=== PATIENT | female | born 1955 | race Caucasian/White ===

== ENCOUNTER 2017-08-26 01:16 | Outpatient (CLI) | payer BC | END 2017-08-26 01:17 | disposition home or self-care (01) | LOC: BICRAD 01:16 | PROVIDERS: ATTEND Internal Medicine Rheumatology | DX: M54.2 Cervicalgia (principal); M25.572 Pain in left ankle and joints of left foot; M25.571 Pain in right ankle and joints of right foot; M47.892 Other spondylosis, cervical region; M19.071 Primary osteoarthritis, right ankle and foot; M19.072 Primary osteoarthritis, left ankle and foot; M77.31 Calcaneal spur, right foot; M77.32 Calcaneal spur, left foot | CPT/HCPCS: 72050 ==

== ENCOUNTER 2017-08-26 07:58 | Outpatient (CLI) | payer BC ==
--- NOTE | 2017-08-26 11:29 | MRI ---
MRI OF THE RIGHT SHOULDER: DATE: 08/26/17. PROVIDED CLINICAL HISTORY: Right shoulder pain. FINDINGS: There is a small full-thickness partial width tear involving the anteriormost portion of the supraspi natus tendon distally at the footplate. There is some interstitial delamination of this tear to invo lve the slightly more posterior fibers of the supraspinatus tendon. The components of the rotator cu ff appear otherwise intact. The longhead biceps tendon appears intact and normally located. The glenoid labrum and glenohumeral articular cartilage are suboptimally evaluated without joint dist ention. The amount of fluid within the glenohumeral joint appears physiologic. There is grade I physiologic subacromial subdeltoid bursal fluid. Rotator cuff muscular volume appears preserved. Acromioclavicular joint osteoarthrosis is noted with associated mass effect upon the subjacent supras pinatus. IMPRESSION: 1. Small full-thickness partial width tear involving the anterior distal supraspinatus tendon at the footplate with interstitial delaminating component. 2. Acromioclavicular joint osteoarthrosis. POS: [facility]
== END 2017-08-26 07:59 | disposition home or self-care (01) ==
LOC: SCSMRI 07:58
PROVIDERS: ATTEND Family Medicine
DX: M75.41 Impingement syndrome of right shoulder (principal); M75.101 Unspecified rotator cuff tear or rupture of right shoulder, not specified as traumatic; M19.011 Primary osteoarthritis, right shoulder; M54.2 Cervicalgia
CPT/HCPCS: 72050

== ENCOUNTER 2018-01-05 14:48 | Observation (INO) | payer BC ==
[2018-01-05 15:18] LABS: #Eosinphils 0.2 thou/uL (0.0-0.7); #Lymphocytes 1.9 thou/uL (1.20-3.40); #Monocytes 0.6 thou/uL (0.11-0.59); #Neutrophils 3.4 thou/uL (1.40-6.50); %Basophils 0.7 % (0.0-1.0); %Eosinophils 2.6 % (0.0-10.0); %Monocytes 9.6 % (0.0-10.0); %Neutrophils 56.1 % (42.0-75.0); Mean Corpuscular HGB CONC 34.7 g/dL (32.0-36.0); Mean Corpuscular Hemoglobin 29.6 pg (27.0-31.0); Mean Corpuscular Volume 85.2 fl (81.0-99.0); Mean Platelet Volume 9.2 fL (7.4-10.4); Platelet Count 139 thou/uL (130-400); RBC Distribution Width 12.1 % (11.5-14.5); Red Blood Cell (RBC) Count 4.72 mill/uL (4.20-5.40); White Blood Cell (WBC) Count 6.1 thou/uL (4.8-10.8)
[2018-01-05 15:35] LABS: ALT (SGPT) 18 U/L (8-55); AST (SGOT) 20 U/L (5-34); Albumin 4.7 g/dL (3.4-4.8); Alkaline Phosphatase 95 U/L (40-150); Anion Gap 16 mmol/L (10-20); BUN (Urea Nitrogen) 11 mg/dL (9.8-20.1); Bilirubin, Total 0.6 mg/dL (0.2-1.2); CK (CPK) 95 U/L (29-168); Calc. Creatinine Clearance 0 mL/min (70-130); Calcium 9.6 mg/dL (7.8-10.44); Carbon Dioxide 25 mmol/L (23-31); Chloride 103 mmol/L (98-107); Estimated GFR-MDRD 81; Globulin 2.9 g/dL (2.4-3.5); Glucose 98 mg/dL (80-115); Potassium 3.6 mmol/L (3.5-5.1); Protein, Total 7.6 g/dL (6.0-8.3); Sodium 140 mmol/L (136-145)
[2018-01-05 15:37] LABS: CKMB 0.9 ng/mL (0-6.6); Troponin I Less than 0.010 ng/mL (< 0.028)
--- NOTE | 2018-01-05 15:46 | RAD ---
PORTABLE AP CHEST X-RAY: 01/05/18 HISTORY: Bradycardia. Weakness and fatigue. COMPARISON: 12/18/12. FINDINGS: The cardiac silhouette and pulmonary vasculature are within normal limits. The lungs are clear. There has been no interval change compared to the prior exam. IMPRESSION: No acute cardiopulmonary process. POS: [facility]
[2018-01-05] MEDS ORDERED: Ondansetron ODT 4 MG TAB SL PRN (17:53)
[2018-01-05] MEDS ORDERED: Acetaminophen 325 MG TAB PO PRN ×2 (17:53→18:45)
[2018-01-05 18:03] VITALS: BMI 27.0
[2018-01-05] MEDS ORDERED: hydrALAZINE 20 MG/ML VIAL SLOW IVP PRN (18:45)
[2018-01-05] MEDS ORDERED: cloNIDine 0.1 MG TAB PO PRN (18:45)
[2018-01-05] MEDS ORDERED: Nitroglycerin 0.4 MG TAB (25 Tab Bottle) SL PRN (18:45)
[2018-01-05] MEDS ORDERED: Diabetic Tussin 200 MG/10 ML UDCUP PO PRN (18:45)
[2018-01-05] MEDS ORDERED: Mag-Al 1200 mg/1200 mg/30 ML UDCUP PO PRN (18:45)
[2018-01-05] MEDS ORDERED: Benzonatate 100 MG CAP PO PRN (18:45)
[2018-01-05] MEDS ORDERED: Senokot 8.6 MG TAB PO PRN (18:45)
[2018-01-05] MEDS ORDERED: Loratadine 10 MG TAB PO PRN (18:45)
[2018-01-05] MEDS ORDERED: Ondansetron HCl/PF 4 MG/2 ML Vial IVP PRN (18:45)
[2018-01-05] MEDS ORDERED: Calcium Carbonate 500 MG ChewTAB PO PRN (18:45)
[2018-01-05] MEDS ORDERED: Bisacodyl 5 MG TAB PO PRN (18:45)
[2018-01-05] MEDS ORDERED: sulfaSALAzine 500 MG TAB PO SCH (19:15)
--- NOTE | 2018-01-05 19:16 | HP ---
DATE OF ADMISSION: 01/05/2018 PRIMARY CARE PHYSICIAN: Dr. Otis Bell. CHIEF COMPLAINT: Low heart rate and tiredness. HISTORY OF PRESENT ILLNESS: Ms. Carlos is a very pleasant 62-year-old female with past medical his tory of hypertension and dyslipidemia, who presented to the [facility] with above -mentioned complaint. History is mainly obtained by the patient herself and electronic medical recor ds have been reviewed. The patient had a nuclear medicine stress test in 2012 for chest pain, which was unremarkable. Ms. Carlos reports that she has noticed in the past at least 2 times that she had palpitations and was found to have some extra beats. This happened actually quite a few years ago. Also, she noticed that she normally has slow heart rate in the 40s and 50s, which does not bother her. She exercises to get it faster. Lately for the last 2 weeks, she noted that she has been having increased fatigue and weakness and these times when she checks her heart rate and blood pressure, her blood pressure i s normal or slight bit higher, but her heart rate has dropped down in the 30s. This has been happeni ng quite frequently and most of the time she is either running in air and walking in the mall. She a lso reports that recently she was started on sulfasalazine by her artificial limb fitter, Dr. Cespedes for rheum atoid arthritis and 3 weeks ago, the dose was doubled. She correlates her symptoms with increase in the dose of the sulfasalazine. She otherwise denies any recent illnesses. She denies any chest pain, shortness of breath, dizziness , nausea, vomiting, palpitation, orthopnea, PND or lower extremity swelling. She denies any fever or chills. She denies any abdominal pain, hematochezia, or melena, etc. Upon presentation to the ER, her heart rate was in the 73 range. EKG showed sinus bradycardia and he r labs were within normal limit. She is now being admitted under observation status for further eval uation of symptomatic bradycardia that seems to be paroxysmal. PAST MEDICAL HISTORY: 1. Hypertension. 2. Dyslipidemia. PAST SURGICAL HISTORY: Reviewed with the patient and none. SOCIAL HISTORY: No history of drug, tobacco or alcohol abuse. 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 FAMILY HISTORY: Significant family history for coronary artery disease in multiple family members. Father at the age of 53 because of a heart attack and father's father also in his 50 s of a heart attack. Her mother lived to be in the 90s, but had a pacemaker. Both of her grandparen ts on mother's side had cardiac disease. One of her sisters of colon cancer in her 50s. One of her brothers has been diagnosed with an arrhythmia and is scheduled for ablation. The sister who di ed of colon cancer, also had some sort of arrhythmias. ALLERGIES: NITROFURANTOIN. CURRENT MEDICATIONS: Amlodipine 10 mg daily, atorvastatin 40 mg daily, sulfasalazine 500 mg 3 times a day, vitamin D3 1000 units daily. REVIEW OF SYSTEMS: The following complete review of systems was negative, unless otherwise mentioned in the HPI or below: Constitutional: Weight loss or gain, ability to conduct usual activities. Skin: Rash, itching. Eyes: Double vision, pain. ENT/Mouth: Nose bleeding, neck stiffness, pain, tenderness. Cardiovascular: Palpitations, dyspnea on exertion, orthopnea. Respiratory: Shortness of breath, wheezing, cough, hemoptysis, fever or night sweats. Gastrointestinal: Poor appetite, abdominal pain, heartburn, nausea, vomiting, constipation, or diarrhea. Genitourinary: Urgency, frequency, dysuria, nocturia. Musculoskeletal: Pain, swelling. Neurologic/Psychiatric: Anxiety, depression. Allergy/Immunologic: Skin rash, bleeding tendency. LABORATORY DATA: CBC unremarkable. Serum chemistries unremarkable. BNP 48. CK-MB 0.9 with troponi n of less than 0.010. Chest x-ray by my review has no evidence to suggest any pleural effusion or ed nellie. No cardiomegaly. A 12-lead EKG shows sinus arrhythmia at 65 beats per minute. Her first EKG s howed some PVCs in the pattern of bigeminy and possible premature atrial complexes with aberrant cond uction and LVH. PHYSICAL EXAMINATION: VITAL SIGNS: Most recent vital signs, temperature 97.7, heart rate 55-71, respirations 16, saturatin g 96% on room air, blood pressure 168/75. GENERAL: No acute distress, awake, alert, oriented x3, very pleasant. HEENT: Mucous membrane is moist and pink. No oropharyngeal exudate or erythema. Head is normocepha lic, atraumatic. Pupils equal, reactive to light and accommodation. Extraocular movement intact. NECK: Supple without any lymphadenopathy, JVD or bruit. CHEST: Clear to auscultation without any wheezing, rales or rhonchi. Rate and rhythm is regular wit hout any murmur, rubs or gallops. ABDOMEN: Soft, nontender, nondistended, positive bowel sounds. EXTREMITIES: Free of any cyanosis, clubbing, or edema. NEUROLOGIC: Nonfocal. SKIN: Free of any rashes or bruises. Feels warm and dry to touch. PSYCHIATRIC: Normal affect. NEUROLOGIC: Nonfocal. IMPRESSION AND PLAN: 1. Symptomatic bradycardia. The patient has noticed more symptoms and more profound bradycardia in the last 3 weeks or so. At this time, we will hold her amlodipine, though this is least likely to ca use bradycardia. The patient most likely has sick sinus syndrome and will require cardiac monitoring in the outpatient setting as well. We will request consultation from Cardiology and obtain a transt horacic echocardiogram meanwhile. She will be admitted to telemetry unit. She will benefit from a H olter and event monitor or implantable monitor. We will defer this to the Cardiology team at this [facility]. 2. Dyslipidemia. Continue atorvastatin. 3. History of hypertension. Hold amlodipine until Cardiology has seen the patient. We will add p.r .n. medications for now. Monitor closely. 4. Family history of colon cancer. The patient has been getting screening colonoscopies and the las t one was 3 years ago, which was normal. 5. Code status: FULL CODE. 6. Deep venous thrombosis and gastrointestinal prophylaxis. DISPOSITION: Ms. Carlos currently being admitted.
[2018-01-05 19:28] LABS: Troponin I Less than 0.010 ng/mL (< 0.028)
[2018-01-05 21:47] LABS: Troponin I Less than 0.010 ng/mL (< 0.028)
[2018-01-06 05:13] LABS: #Eosinphils 0.2 thou/uL (0.0-0.7); #Lymphocytes 1.9 thou/uL (1.20-3.40); #Monocytes 0.5 thou/uL (0.11-0.59); #Neutrophils 2.7 thou/uL (1.40-6.50); %Basophils 0.2 % (0.0-1.0); %Eosinophils 3.1 % (0.0-10.0); %Lymphocytes 36.1 % (21.0-51.0); %Neutrophils 50.6 % (42.0-75.0); Mean Corpuscular HGB CONC 32.9 g/dL (32.0-36.0); Mean Corpuscular Hemoglobin 29.1 pg (27.0-31.0); Mean Corpuscular Volume 88.3 fl (81.0-99.0); Mean Platelet Volume 8.3 fL (7.4-10.4); Platelet Count 159 thou/uL (130-400); RBC Distribution Width 12.4 % (11.5-14.5); Red Blood Cell (RBC) Count 4.47 mill/uL (4.20-5.40); White Blood Cell (WBC) Count 5.3 thou/uL (4.8-10.8)
[2018-01-06 05:25] LABS: Anion Gap 11 mmol/L (10-20); BUN (Urea Nitrogen) 11 mg/dL (9.8-20.1); Calc. Creatinine Clearance 123 mL/min (70-130); Calcium 8.9 mg/dL (7.8-10.44); Carbon Dioxide 27 mmol/L (23-31); Chloride 106 mmol/L (98-107); Estimated GFR-MDRD Greater than 90; Glucose 89 mg/dL (80-115); Potassium 3.5 mmol/L (3.5-5.1); Sodium 140 mmol/L (136-145)
[2018-01-06] MEDS ORDERED: sulfaSALAzine 500 MG TAB PO SCH (08:00)
[2018-01-06] MEDS ORDERED: Enoxaparin Sodium 40 MG/0.4 ML SYRINGE SC SCH (09:00)
[2018-01-06] MEDS ORDERED: Fish Oil 1,000 MG CAP PO SCH (09:00)
[2018-01-06] MEDS ORDERED: Amlodipine 5 MG TAB PO SCH (09:00)
[2018-01-06] MEDS ORDERED: Atorvastatin Calcium 10 MG TAB PO SCH (09:00)
--- NOTE | 2018-01-06 14:41 | PDOC.PN ---
- Subjective Encounter Start Date: 01/06/18 Encounter Start Time: 14:40 Subjective: feels good.walked in hallways w -: no CP/SOB/dizziness - Objective MAR Reviewed: Yes Vital Signs & Weight: Vital Signs (12 hours) Temp Pulse Resp BP Pulse Ox 01/06/18 11:08 98.1 F 59 L 16 159/71 H 97 01/06/18 09:02 61 01/06/18 08:11 97.8 F 61 16 01/06/18 08:02 97.8 F 61 16 182/75 H 96 01/06/18 04:29 98.3 F 68 14 125/61 97 I&O: 01/05/18 01/06/18 01/07/18 06:59 06:59 06:59 Intake Total 400 Balance 400 Result Diagrams: 01/06/18 04:38 01/06/18 04:38 Phys Exam - Physical Examination Constitutional: NAD HEENT: PERRLA, moist MMs, sclera anicteric, oral pharynx no lesions Neck: no nodes, no JVD, supple, full ROM Respiratory: no wheezing, no rales, no rhonchi, clear to auscultation bilateral Cardiovascular: RRR, no significant murmur, no rub, gallop Gastrointestinal: soft, non-tender, no distention, positive bowel sounds Musculoskeletal: no edema, pulses present Neurological: non-focal, normal sensation, moves all 4 limbs Psychiatric: normal affect, A&O x 3 Skin: no rash Dx/Plan (1) Sinus bradycardia Code(s): R00.1 - BRADYCARDIA, UNSPECIFIED Status: Acute (2) HTN (hypertension) Code(s): I10 - ESSENTIAL (PRIMARY) HYPERTENSION Status: Acute - Plan DVT proph w/SCDs cont to monitor. cardiology recs requested.NPO for now -: BP on higher side. monitor.restarted on home amlodipine.may need increased -: cont prn meds. * . Review of Systems - Review of Systems Constitutional: negative: fever, chills, sweats, weakness, malaise, other ENT: negative: Ear Pain, Ear Discharge, Nose Pain, Nose Discharge, Nose Congestion, Mouth Pain, Mouth Swelling, Throat Pain, Throat Swelling, Other Respiratory: negative: Cough, Dry, Shortness of Breath, Hemoptysis, SOB with Excertion, Pleuritic Pain, Sputum, Wheezing Cardiovascular: negative: chest pain, palpitations, orthopnea, paroxysmal nocturnal dyspnea, edema, light headedness, other Gastrointestinal: negative: Nausea, Vomiting, Abdominal Pain, Diarrhea, Constipation, Melena, Hematochezia, Other Genitourinary: negative: Dysuria, Frequency, Incontinence, Hematuria, Retention , Other Musculoskeletal: negative: Neck Pain, Shoulder Pain, Arm Pain, Back Pain, Hand Pain, Leg Pain, Foot Pain, Other Skin: negative: Rash, Lesions, Tay, Bruising, Other Neurological: negative: Weakness, Numbness, Incoordination, Change in Speech, Confusion, Seizures, Other - Medications/Allergies Allergies/Adverse Reactions: Allergies Allergy/AdvReac Type Severity Reaction Status Date / Time nitrofurantoin Allergy Verified 01/05/18 18:05 macrocrystalline [From Macrodantin] Medications: Current Medications Acetaminophen (Tylenol) 650 mg PO Q4H PRN PRN Reason: Headache/Fever or Pain Al Hydroxide/Mg Hydroxide (Maalox) 30 ml PO Q6H PRN PRN Reason: Heartburn or Indigestion Amlodipine Besylate (Norvasc) 5 mg PO DAILY [facility] Last Admin: 01/06/18 09:02 Dose: 5 mg Atorvastatin Calcium (Lipitor) 10 mg PO DAILY [facility] Last Admin: 01/06/18 09:02 Dose: 10 mg Benzonatate (Tessalon) 100 mg PO Q4H PRN PRN Reason: Cough Bisacodyl (Dulcolax) 10 mg PO DAILYPRN PRN PRN Reason: Constipation Calcium Carbonate (Tums) 1,000 mg PO Q4H PRN PRN Reason: Heartburn or Indigestion Cholecalciferol (Vitamin D3) 2,000 units PO DAILY [facility] Last Admin: 01/06/18 09:01 Dose: 2,000 units Clonidine (Catapres) 0.1 mg PO Q4H PRN PRN Reason: Systolic BP > 160 Enoxaparin Sodium (Lovenox) 40 mg SC 0900 [facility] Last Admin: 01/06/18 12:54 Dose: Not Given Fish Oil (Fish Oil) 1,000 mg PO DAILY [facility] Last Admin: 01/06/18 12:55 Dose: Not Given Guaifenesin (Robitussin Sf) 200 mg PO Q4H PRN PRN Reason: Cough Hydralazine HCl (Apresoline) 10 mg SLOW IVP Q4H PRN PRN Reason: Systolic BP > 170 Loratadine (Claritin) 10 mg PO DAILYPRN PRN PRN Reason: Sinus Symptoms Nitroglycerin (Nitrostat) 0.4 mg SL Q5MIN PRN PRN Reason: Chest Pain Ondansetron HCl (Zofran) 4 mg IVP Q6H PRN PRN Reason: Nausea/Vomiting Senna (Senokot) 2 tab PO HSPRN PRN PRN Reason: Constipation Sulfasalazine (Azulfidine) 1,000 mg PO BID-[facility] Last Admin: 01/06/18 12:54 Dose: Not Given
[2018-01-06 15:33] VITALS: BP 140/75; TEMP 97.8
--- NOTE | 2018-01-06 18:09 | CON ---
DATE OF CONSULTATION: 01/06/2018 REASON FOR CONSULTATION: Bradycardia and tiredness. HISTORY OF PRESENT ILLNESS: Mrs. Carlos is a very pleasant 62-year-old white female who comes to [facility] for just feeling tired. She has noticed that for the last 3 weeks, she has had episodes where she was at the store and suddenly felt really tired and fatigued. She went home on this last e pisode and she took her blood pressure which was about 160s/80s but the machine saw that her heart ra te was in the 30s, so she was advised to come into the hospital for this. Recently, she had sulfasal azine restarted by her utilities estimator and drafter and she has noted these episodes since then. On arrival to the ER, her EKG showed sinus rhythm with PVCs in a bigeminy pattern. She was feeling well at that time. PAST MEDICAL HISTORY: 1. Hypertension. 2. Hyperlipidemia. 3. Rheumatoid arthritis. PAST SURGICAL HISTORY: 1. Appendectomy. 2. Hysterectomy. 3. Left shoulder surgery. 4. Anterior and posterior repair of an enterocele and a MiniArc transvaginal capping secondary to gr hilton 2 rectocele and grade 2-3 cystocele. OUTPATIENT MEDICATIONS: 1. Atorvastatin 40 mg a day. 2. Amlodipine 10 mg a day. 3. Krill oil. 4. Sulfasalazine 1000 mg b.i.d. 5. Vitamin D3 of 2000 units daily. ALLERGIES: MACRODANTIN. FAMILY HISTORY: Positive for coronary artery disease in multiple family members. Father at 53 of an TN. Grandfather and father's side in his 50s of an TN. Mother lived to be 90, but had a pacemaker. Has a brother with an ablation coming up for an arrhythmia. SOCIAL HISTORY: No alcohol, tobacco or drugs. 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 REVIEW OF SYSTEMS: A 12 point review of systems was done and is all negative unless stated in the hi story of present illness. PHYSICAL EXAMINATION: VITAL SIGNS: Temperature 97.8, pulse 76, respiratory rate 12, satting 97% on room air, blood pressur e 140/75. GENERAL: Awake, alert, oriented x3, in no distress. HEENT: Normocephalic, atraumatic. NECK: Supple. LUNGS: Clear. CARDIOVASCULAR: S1, S2, no S3, S4, no murmurs or rubs. No gallops. ABDOMEN: Soft, positive bowel sounds. EXTREMITIES: No edema. SKIN: Warm and dry. LABORATORY WORK: Reviewed. CBC is unremarkable. Chemistries are unremarkable. Troponin is undetec table x3. BNP was 48. Echocardiogram was reviewed. ASSESSMENT AND PLAN: 1. Bradycardia: My suspicion is the machine was reading her bigeminy and her heart rate was actuall y in the 60s. This is unclear to me at this time. Her blood pressure was not the issue either. We would recommend doing a 30-day event recorder or event monitor to assess for any arrhythmias. Hopefu lly, we will catch one of these episodes in the next week or so and be able to elucidate if this was related to slow heart rates versus this could be also related to too many PVCs or even nonsustained V T or sustained VT. 2. She has moderate mitral regurgitation and tricuspid regurgitation. These would have to be review ed on a yearly basis with repeat echocardiogram. 3. We will get a Lexiscan stress test as an outpatient to evaluate for ischemia being the cause of h er fatigue and her multiple PVCs. Thank you for letting us to participate in the care of your patient. We will plan on doing a 30-day event recorder, stress is in the next 30 days and follow up in 1 month. We will sign off. Please ca ll with any questions. Patient may be discharged once event recorder has been set up.
--- NOTE | 2018-01-07 12:19 | DIS ---
DATE OF ADMISSION: 01/05/2018 DATE OF DISCHARGE: 01/06/2018 CONDITION AT THE TIME OF DISCHARGE: Stable and improved. DISPOSITION: Home. PRIMARY CARE PHYSICIAN: Otis Bell MD CONSULTATION: Include Cardiology, Dr. Kelley. PROCEDURES: Echocardiogram, which is unremarkable. EF is 50%-55% and grade 1/3 diastolic dysfunctio n with moderate left atrial dilatation and moderate tricuspid regurgitation. DISCHARGE MEDICATIONS: Remain the same as the home medication, no changes were made including atorva statin 40 mg daily, amlodipine 10 mg daily, sulfasalazine 100 mg p.o. b.i.d., cholecalciferol 2000 un its daily, and fish oil. HISTORY OF PRESENTING ILLNESS: Ms. Carlos is a 62-year-old female with past medical history of hyp ertension who presented to the emergency room after she noticed some weakness and tiredness, and noti hipolito that her heart rate was in the 30s at home. She gave history of multiple episodes of fast heart rate interspersed with slow heart rate over the course of the last 2 years. She was admitted for fur ther evaluation and Cardiology was consulted. She was otherwise hemodynamically stable. Please see admission history and physical for further details. HOSPITAL COURSE: Cardiology, Dr. Kelley saw the patient and recommended event monitor for 1 month fo llowed by stress test in 1 month in the clinic. Echocardiogram was done which did not show any overt changes. She did have grade I/III diastolic dysfunction, but was asymptomatic. No medication zuleta es were made and after she was cleared by Cardiology for discharge, she was sent home for outpatient followup with Cardiology as well as primary care physician. She was seen and examined prior to discharge. Please see hospitalist's progress note from the day of discharge for further detail including [id number] interaction.
== END 2018-01-06 17:03 | disposition home or self-care (01) ==
LOC: SCSER 14:48 → 2SW 16:25
PROVIDERS: ADMIT Internal Medicine; ATTEND Internal Medicine
DX: R00.1 Bradycardia, unspecified (principal); I08.1 Rheumatic disorders of both mitral and tricuspid valves; I10 Essential (primary) hypertension; E78.5 Hyperlipidemia, unspecified; M06.9 Rheumatoid arthritis, unspecified; Z88.8 Allergy status to other drugs, medicaments and biological substances; Z79.899 Other long term (current) drug therapy; Z98.890 Other specified postprocedural states; Z80.0 Family history of malignant neoplasm of digestive organs; Z82.49 Family history of ischemic heart disease and other diseases of the circulatory system
CPT/HCPCS: 36415; 71045; 80048; 80053; 82553; 83880; 84484; 85025; 93005; 93306; 94760; G0378; J1650

== ENCOUNTER 2018-01-26 15:17 | Outpatient (CLI) | payer BC | END 2018-01-26 15:18 | disposition home or self-care (01) | LOC: BICMAMMO 15:17 | PROVIDERS: ATTEND Family Medicine | DX: Z12.31 Encounter for screening mammogram for malignant neoplasm of breast (principal); Z80.3 Family history of malignant neoplasm of breast | CPT/HCPCS: 77063; 77067 ==

== ENCOUNTER 2018-06-06 10:20 | Outpatient (CLI) | payer BC ==
--- NOTE | 2018-06-06 14:58 | MRI ---
MRI OF THE LEFT KNEE WITHOUT CONTRAST: INDICATION: Left knee meniscal tear. FINDINGS: There is a horizontally oriented tear involving the body, posterior junction, and posterior horn of t he medial meniscus. There is a small central free edge radial tear involving the body of the lateral meniscus. There is moderate chondrosis involving the medial femoral condyle with a near full-thickness defect i nvolving the lateral aspect of the medial femoral condyle best seen on image 21 of series 6 measuring 1.3 cm. There are small marginal osteophytes affecting all major compartments of the left knee. There is mod erate diffuse chondrosis involving the patellofemoral compartment. There is a mild-sized joint effus ion. There is a small popliteal cyst. The MCL, LCLC, and extensor mechanism appear intact. The ACL and PCL are intact. IMPRESSION: 1. Mild osteoarthrosis of the left knee predominantly affecting the medial femoral tibial and patell ofemoral compartments. 2. Medial and lateral meniscal tears. POS: [facility]
== END 2018-06-06 10:21 | disposition home or self-care (01) ==
LOC: TBSIIMAG 10:20
PROVIDERS: ATTEND Orthopaedic Surgery
DX: S83.242A Other tear of medial meniscus, current injury, left knee, initial encounter (principal); M17.12 Unilateral primary osteoarthritis, left knee; S83.282A Other tear of lateral meniscus, current injury, left knee, initial encounter

== ENCOUNTER 2018-07-04 15:40 | Outpatient (CLI) | payer BC ==
--- NOTE | 2018-07-04 18:17 | MRI ---
MRI RIGHT KNEE WITHOUT CONTRAST: Date: 07/04/18 HISTORY: Pain, M25.561. COMPARISON: None. FINDINGS: Medial Meniscus: There is scar and granulation tissue posterior root attachment medial meniscus with likely a partiall y healed high grade radial tear. There is undersurface partial tear of the body of the medial meniscu s with inherent degenerative signal. Lateral Meniscus: There is free edge fraying of the lateral meniscal body. No displaced tear. The ACL and PCL are intact. The MCL and LCL are intact. Extensor Mechanism: Quadriceps tendon, patella, and patellar tendon are all intact. Cartilage: Patellofemoral compartment: Intact. Medial compartment: There is some high grade cartilage fissuring of the anterior weightbearing surfa ce of the medial femoral condyle. There is submeniscal tibial edema. Lateral compartment: Intact. Benign appearing chondroid lesion distal femoral metaphysis. Soft Tissues: There is a large leaking popliteal cyst. Muscles: Muscle signal and bulk are normal. IMPRESSION: 1. Abnormal stress edema of the anterior medial femoral condyle and medial tibial plateau with high grade cartilage fissuring of the medial femoral condyle. The tibial plateau edema is submeniscal. 2. Scar and granulation tissue bridging a high grade old radial tear of the posterior root attachmen t of the medial meniscus. 3. Free edge fraying without displaced tear lateral meniscal body. 4. Leaking popliteal cyst. POS: [facility]
== END 2018-07-04 15:41 | disposition home or self-care (01) ==
LOC: TBSIIMAG 15:40
PROVIDERS: ATTEND Orthopaedic Surgery
DX: M25.561 Pain in right knee (principal); R60.0 Localized edema; M71.21 Synovial cyst of popliteal space [Baker], right knee; L92.9 Granulomatous disorder of the skin and subcutaneous tissue, unspecified

== ENCOUNTER 2018-09-21 13:59 | Outpatient (CLI) | payer BC ==
[2018-09-21 17:12] LABS: #Eosinphils 0.1 thou/uL (0.0-0.7); #Monocytes 0.6 thou/uL (0.11-0.59); #Neutrophils 4.2 thou/uL (1.40-6.50); %Basophils 0.4 % (0.0-1.0); %Monocytes 8.6 % (0.0-10.0); Hemoglobin 13.5 g/dL (12.0-16.0); Mean Corpuscular HGB CONC 33.3 g/dL (32.0-36.0); Mean Corpuscular Hemoglobin 29.6 pg (27.0-31.0); Platelet Count 186 thou/uL (130-400); RBC Distribution Width 11.9 % (11.5-14.5); Red Blood Cell (RBC) Count 4.56 mill/uL (4.20-5.40)
[2018-09-21 17:29] LABS: Anion Gap 13 mmol/L (10-20); BUN (Urea Nitrogen) 20 mg/dL (9.8-20.1); Calc. Creatinine Clearance 0 mL/min (70-130); Calcium 9.3 mg/dL (7.8-10.44); Carbon Dioxide 25 mmol/L (23-31); Chloride 105 mmol/L (98-107); Estimated GFR-MDRD 79; Glucose 124 mg/dL (80-115); Potassium 3.6 mmol/L (3.5-5.1); Sodium 139 mmol/L (136-145)
--- NOTE | 2018-09-22 17:00 | EKG ---
Test Reason : Blood Pressure : / mmHG Vent. Rate : 069 BPM Atrial Rate : 069 BPM P-R Int : 152 ms QRS Dur : 096 ms QT Int : 424 ms P-R-T Axes : 076 083 075 degrees QTc Int : 454 ms Normal sinus rhythm Possible Left atrial enlargement Left ventricular hypertrophy Abnormal ECG When compared with ECG of 05-JAN-2018 16:31, No significant change was found Confirmed by DR. Monica KELLER ([id number]) on 09/22/2018 4:59:30 PM Referred By: JASS Confirmed By:DR. Monica KELLER
== END 2018-09-21 14:00 | disposition home or self-care (01) ==
LOC: LABBT 13:59
PROVIDERS: ATTEND Orthopaedic Surgery
DX: Z01.818 Encounter for other preprocedural examination (principal); S83.242A Other tear of medial meniscus, current injury, left knee, initial encounter; S83.282A Other tear of lateral meniscus, current injury, left knee, initial encounter
CPT/HCPCS: 80048; 85025; 93005; 93010

== ENCOUNTER 2018-09-23 05:52 | Day surgery (SDC) | payer BC ==
[2018-09-21 15:50] VITALS: BMI 26.5
[2018-09-23] MEDS ORDERED: PROPOFOL 20 ML ONE (06:33)
[2018-09-23] MEDS ORDERED: Midazolam HCl 2 mg/2 ml Vial ONE (06:38)
[2018-09-23] MEDS ORDERED: Fentanyl 100 MCG/2 ML VIAL ONE (06:38)
[2018-09-23] MEDS ORDERED: Bupivacaine HCl 0.5%/Epinephrine 1:200,000/PF 30 ml Vial ONE ×2 (06:52→16:12)
[2018-09-23] MEDS ORDERED: CEFAZOLIN 2 GM/50 ML BAG ONE (06:52)
[2018-09-23] MEDS ORDERED: PROPOFOL 200 MG/20 ML VIAL ONE (10:40)
[2018-09-23] MEDS ORDERED: Lidocaine 1% PF 5 ML VIAL ONE (10:40)
[2018-09-23] MEDS ORDERED: Dexamethasone 20 MG/5 ML VIAL ONE (10:40)
[2018-09-23] MEDS ORDERED: Ondansetron PF 4 MG/2 ML Vial ONE (10:40)
--- NOTE | 2018-09-23 14:03 | OP ---
DATE OF PROCEDURE: 09/23/2018 PREOPERATIVE DIAGNOSIS: Medial and lateral meniscus tear, left knee. POSTOPERATIVE DIAGNOSIS: Medial and lateral meniscus tear, left knee. PROCEDURE: Arthroscopic partial medial and lateral meniscectomy. ANESTHESIA: General. ESTIMATED BLOOD LOSS: Minimal. SPECIMENS: None. DRAINS: None. COMPLICATIONS: None. DESCRIPTION OF PROCEDURE: The patient was taken to the operating room, where general anesthesia was induced. Left leg was placed in leg constantino and prepped and draped in usual sterile fashion. I placed the scope through a lateral portal and probe through a medial portal. Patellofemoral joint had some grade 2 chondromalacia. The medial femoral condyle had grade 3 chondromalacia. There is a complex tear involving most of the posterior horn of the medial meniscus and significant portion of the posterior horn of the lateral meniscus. I debrided the meniscus tissue with basket forceps on the medial side and smoothed with 4.0 full-radius resector and irrigated free cartilage fragments from the joint. I performed the same procedure on the lateral side. I then swept the gutters and searched the pouch to make sure there were no additional loose bodies. The knee was irrigated and drained. Sterile dressing was applied. Job ID: [id number]
[2018-09-23] MEDS ORDERED: Lidocaine 2% w/Epinephrine 1:200K 20 ML VIAL ONE (16:12)
== END 2018-09-23 10:14 | disposition home or self-care (01) ==
LOC: SDC 05:52
PROVIDERS: ATTEND Orthopaedic Surgery
PROC: 0SBD4ZZ Excision of Left Knee Joint, Percutaneous Endoscopic Approach (ICD-10-PCS; principal; 2018-09-23)
DX: S83.272A Complex tear of lateral meniscus, current injury, left knee, initial encounter (principal); S83.232A Complex tear of medial meniscus, current injury, left knee, initial encounter; M94.262 Chondromalacia, left knee; M06.061 Rheumatoid arthritis without rheumatoid factor, right knee; I10 Essential (primary) hypertension; E78.5 Hyperlipidemia, unspecified; E78.00 Pure hypercholesterolemia, unspecified; G40.909 Epilepsy, unspecified, not intractable, without status epilepticus; K74.3 Primary biliary cirrhosis; L94.0 Localized scleroderma [morphea]; Z79.2 Long term (current) use of antibiotics; Z79.899 Other long term (current) drug therapy; Z88.1 Allergy status to other antibiotic agents; Y93.53 Activity, golf
CPT/HCPCS: J0670; J1100; J2001; J2250; J2405; J2704; J3010

== ENCOUNTER 2019-01-12 07:57 | Outpatient (CLI) | payer BC ==
--- NOTE | 2019-01-12 08:15 | RAD ---
EXAM: Lumbar spine 4 views HISTORY: Low back pain COMPARISON: None FINDINGS: No evidence for acute fracture or dislocation involving the visualized spine. There are disc osteophytosis and facet arthrosis changes. 2.7 cm grade 1 spondylolisthesis of L4 and L5. Bony demineralization. No evidence for a bone lesion. IMPRESSION: Spondylosis. Grade 1 spondylolisthesis of L4 and L5.
== END 2019-01-12 07:58 | disposition home or self-care (01) ==
LOC: BICRAD 07:57
PROVIDERS: ATTEND Internal Medicine Rheumatology
DX: M54.5 Low back pain (principal); M47.816 Spondylosis without myelopathy or radiculopathy, lumbar region; M43.16 Spondylolisthesis, lumbar region
CPT/HCPCS: 72110

== ENCOUNTER 2019-06-20 07:40 | Outpatient (CLI) | payer BC ==
--- NOTE | 2019-06-20 09:29 | MMO ---
Bilateral MAMMO Bilat Screen [facility]. CLINICAL HISTORY: Patient is 63 years old and is seen for screening. The patient has no personal history of cancer. VIEWS: The views performed were: bilateral craniocaudal with tomosynthesis and bilateral mediolateral oblique with tomosynthesis. FILMS COMPARED: The present examination has been compared to a prior imaging study performed at [facility] on 01/26/2018. This study has been interpreted with the assistance of computer-aided detection. MAMMOGRAM FINDINGS: The breasts are heterogeneously dense, which could obscure a lesion on mammography. Benign calcifications are noted bilaterally. There are no suspicious masses, suspicious calcifications, or new areas of architectural distortion. IMPRESSION: THERE IS NO MAMMOGRAPHIC EVIDENCE OF MALIGNANCY. A ROUTINE FOLLOW-UP MAMMOGRAM IN 1 YEAR IS RECOMMENDED. THE RESULTS OF THIS EXAM WERE SENT TO THE PATIENT. ACR BI-RADS Category 2 - Benign finding MAMMOGRAPHY NOTE: 1. A negative mammogram report should not delay a biopsy if a dominant of clinically suspicious mass is present. 2. Approximately 10% to 15% of breast cancers are not detected by mammography. 3. Adenosis and dense breasts may obscure an underlying neoplasm. Reported by: WILLOW FLANNERY MD Electonically Signed: [id number]
== END 2019-06-20 07:41 | disposition home or self-care (01) ==
LOC: BICMAMMO 07:40
PROVIDERS: ATTEND Family Medicine
DX: Z12.31 Encounter for screening mammogram for malignant neoplasm of breast (principal)
CPT/HCPCS: 77063; 77067

== ENCOUNTER 2019-09-24 17:50 | Inpatient (IN) | payer BC ==
[2019-09-24 18:25] LABS: Hemoglobin 14.1 g/dL (12.0-16.0); Mean Corpuscular HGB CONC 33.7 g/dL (32.0-36.0); Mean Corpuscular Hemoglobin 29.3 pg (27.0-31.0); Mean Platelet Volume 7.3 fL (7.4-10.4); Platelet Count 383 thou/uL (130-400); RBC Distribution Width 12.5 % (11.5-14.5); Red Blood Cell (RBC) Count 4.82 mill/uL (4.20-5.40)
[2019-09-24] MEDS ORDERED: cefTRIAXone\\ROCEPHIN 2 GM VIAL ONE (18:26)
[2019-09-24] MEDS ORDERED: Acetaminophen 500 MG TAB ONE (18:26)
--- NOTE | 2019-09-24 18:30 | RAD ---
Chest AP view INDICATION: Dyspnea COMPARISON: January 05, 2018 FINDINGS: Lungs:There are patchy airspace opacities involving the right upper lobe and both lower lobes suspici ous for multifocal pneumonia. Cardiac silhouette:The heart size is accentuated by exam technique. Pulmonary vasculature:Normal Pleural spaces:No pleural effusion or pneumothorax is demonstrated. Upper abdomen:No abnormality seen. Osseous structures: No acute osseous abnormality. Additional findings:None. IMPRESSION: Findings suspicious for multifocal pneumonia. Radiographic follow-up to resolution is rec ommended.
[2019-09-24 18:35] LABS: INR-International Normal Ratio 1.2; PTT 29.4 SEC (22.9-36.1); Prothrombin Time 14.8 SEC (12.0-14.7)
[2019-09-24 18:42] LABS: ALT (SGPT) 58 U/L (8-55); AST (SGOT) 50 U/L (5-34); Albumin 3.5 g/dL (3.4-4.8); Alkaline Phosphatase 96 U/L (40-110); Anion Gap 16 mmol/L (10-20); BUN (Urea Nitrogen) 9 mg/dL (9.8-20.1); Bilirubin, Total 1.4 mg/dL (0.2-1.2); CK (CPK) 67 U/L (29-168); Calc. Creatinine Clearance 0 mL/min (70-130); Calcium 9.2 mg/dL (7.8-10.44); Carbon Dioxide 27 mmol/L (23-31); Chloride 94 mmol/L (98-107); Estimated GFR-MDRD 89; Globulin 3.8 g/dL (2.4-3.5); Glucose 134 mg/dL (80-115); Protein, Total 7.3 g/dL (6.0-8.3); Sodium 134 mmol/L (136-145)
[2019-09-24 18:49] LABS: Band 16 % (5-11); Lymphocytes 2 % (21-51); MDiff Complete? YES; Monocytes 2 % (0-10); Neutrophil 80 % (42-75); Platelet Morphology Comment Appears Adequate; RBC Morphology Normal; Toxic Granulation SLIGHT; Vacuoles SLIGHT
[2019-09-24 18:50] LABS: Potassium 2.9 mmol/L (3.5-5.1)
[2019-09-24] MEDS ORDERED: Azithromycin 500 MG VIAL ONE (19:04)
[2019-09-24] MEDS ORDERED: Potassium Chloride 20 MEQ TAB ONE (19:04)
[2019-09-24] MEDS ORDERED: CCU Electrolyte Replacement 1 EACH IVPB ONE (22:02)
[2019-09-24] MEDS ORDERED: Potassium Phosphate 12 MMOL in Sodium Chloride 0.9% 250 ML 250 ML IV PRN (22:04)
[2019-09-24] MEDS ORDERED: Magnesium 2 GM/50 ML 2 GM in Premix Bag 1 BAG IVPB PRN (22:04)
[2019-09-24] MEDS ORDERED: CCU ELECTROLYTE REPLACEMENT PROTOCOL FS PRN (22:04)
[2019-09-24] MEDS ORDERED: Magnesium Oxide 400 MG TAB PO PRN ×2 (22:04)
[2019-09-24] MEDS ORDERED: PHOS-NAK 1 PKT PACK PO PRN ×2 (22:04)
[2019-09-24] MEDS ORDERED: Potassium Phosphate 15 MMOL in Sodium Chloride 0.9% 250 ML 250 ML IV PRN (22:04)
[2019-09-24] MEDS ORDERED: Potassium Chloride 40 MEQ in Premix Bag 1 BAG IVPB PRN (22:04)
[2019-09-24] MEDS ORDERED: Potassium Chloride 40 MEQ in Sodium Chloride 0.9% 250 ML 250 ML IVPB PRN (22:04)
[2019-09-24] MEDS ORDERED: Potassium Phosphate 9 MMOL in Sodium Chloride 0.9% 100 ML IVPB PRN (22:04)
[2019-09-24 23:20] VITALS: BMI 26.5
[2019-09-24] MEDS ORDERED: Potassium Chloride 20 MEQ in Premix Bag 1 BAG IVPB SCH (23:59)
[2019-09-25 03:41] LABS: #Eosinphils 0.1 thou/uL (0.0-0.7); #Monocytes 0.6 thou/uL (0.11-0.59); #Neutrophils 12.2 thou/uL (1.40-6.50); %Basophils 0.2 % (0.0-1.0); %Eosinophils 0.5 % (0.0-10.0); %Lymphocytes 7.1 % (21.0-51.0); %Monocytes 4.3 % (0.0-10.0); %Neutrophils 87.9 % (42.0-75.0); Hemoglobin 11.6 g/dL (12.0-16.0); Mean Corpuscular HGB CONC 33.2 g/dL (32.0-36.0); Mean Corpuscular Hemoglobin 28.9 pg (27.0-31.0); Mean Corpuscular Volume 87.2 fL (78.0-98.0); Mean Platelet Volume 7.2 fL (7.4-10.4); Platelet Count 305 thou/uL (130-400); RBC Distribution Width 12.3 % (11.5-14.5); Red Blood Cell (RBC) Count 4.01 mill/uL (4.20-5.40); White Blood Cell (WBC) Count 13.8 thou/uL (4.8-10.8)
[2019-09-25 03:51] LABS: Anion Gap 13 mmol/L (10-20); BUN (Urea Nitrogen) 6 mg/dL (9.8-20.1); Calc. Creatinine Clearance 140 mL/min (70-130); Carbon Dioxide 22 mmol/L (23-31); Chloride 104 mmol/L (98-107); Estimated GFR-MDRD Greater than 90; Glucose 112 mg/dL (80-115); Potassium 3.4 mmol/L (3.5-5.1); Sodium 136 mmol/L (136-145)
[2019-09-25 03:54] LABS: ALT (SGPT) 49 U/L (8-55); AST (SGOT) 41 U/L (5-34); Albumin 2.9 g/dL (3.4-4.8); Alkaline Phosphatase 85 U/L (40-110); Bilirubin, Direct 0.4 mg/dL (0.1-0.3); Bilirubin, Total 0.7 mg/dL (0.2-1.2); Protein, Total 5.9 g/dL (6.0-8.3)
--- NOTE | 2019-09-25 04:07 | HP ---
CHIEF COMPLAINT: Shortness of breath. HISTORY OF PRESENT ILLNESS: The patient is a very pleasant 64-year-old female with history of hyperlipidemia and hypertension, who presents to the hospital complains of shortness of breath. The patient states that [place], usually she comes in May for the winter months to [facility]. The patient states that she did go visit her family for [place], where she lives, which [place] believe [place] [place], that is what she told me that is where she normally resides. At this time, she stated that she did have a grandson, who was flu positive. He was influenza B flu positive. The patient states that she on September 14 to got very ill. She did go to her local PCP, who recommended her to take [id number] medications Mucinex for her symptoms. The patient stated that she did not improve, however, her improved significantly. They drove about 4 days ago from [place], which is the 15-hour [address] from [place] to [place]. The patient states that she felt that she was unable to catch her breath, could not breathe, just felt very tired and so she came into the ER for further evaluation. PAST MEDICAL HISTORY: As mentioned, she has a history of hyperlipidemia and hypertension. PAST SURGICAL HISTORY: She has had ablation for PVCs, knee surgery, shoulder surgery, and a cholecystectomy. ALLERGIES: SHE HAS ALLERGIES TO MACRODANTIN. MEDICATION: 1. She is on lisinopril 5 mg daily. 2. Atorvastatin 40 mg daily. 3. Amlodipine 5 mg daily. REVIEW OF SYSTEMS: All negative except for the ones mentioned above in the HPI. FAMILY HISTORY: No history of heart disease, cancer, or stroke. According to the patient, this has never really happened to her in the past. PHYSICAL EXAMINATION: VITAL SIGNS: Temperature of 99.8, sats were 89% on room air, pulse 90, and blood pressure 128/58. GENERAL: She is awake, alert, and oriented x3. Appears ill. CV: S1 and S2 present. No murmurs, rubs, or gallops. LUNGS: She has mild rhonchi all over. ABDOMEN: Soft and nontender. Bowel sounds are present x2. EXTREMITIES: No edema. Pedal pulses are present x2. NEUROVASCULAR: There are no focal deficits noted. SKIN: No cuts, lesions, or bruises noted. LABORATORY RESULTS: As of the following; she has a white count of 19,000 with bands of 16, neutrophils of 80. She did have chemistry; sodium of 134, potassium of 2.9, BUN of 9, creatinine 0.67. Her AST is 50, ALT is 58. Her bilirubin is 1.4. Troponin was 0.011, and her BNP was 22. Chest x-ray, she did indicate multifocal opacities. ASSESSMENT AND PLAN: The patient is a 64-year-old female, who presents to the hospital with complaints of shortness of breath. 1. Acute hypoxic respiratory failure. The patient's oxygenation on room air in the ER was in the high 80s. She was put on BiPAP. She is currently doing well. There was no ABG done. Her chest x-ray does indicate multifocal pneumonia, this could be pneumonia superimposed from recent viral infection versus altitude pulmonary edema. However, the patient normally lives there. This is not the first time that she has done this. I will start her on some broad-spectrum antibiotics with community-acquired pneumonia and also I will swab her for the flu. Blood cultures are drawn. We will continue to monitor. 2. Pneumonia. Again, most likely community-acquired pneumonia. We will check for the flu. Continue her antibiotics. 3. Elevated leukocytosis with bandemia, again this is most likely secondary to her pneumonia. 4. Mild elevated LFTs. She has had a cholecystectomy. We will continue to monitor. I will hold her atorvastatin. If her numbers continue to worsen tomorrow, may require a right upper quadrant ultrasound. 5. Hypokalemia. We will replace the potassium and we will also check a magnesium. 6. Deep venous thrombosis prophylaxis. We will put the patient on SCDs. Job ID: [id number]
[2019-09-25] MEDS: Potassium Chloride 20 MEQ TAB PO PRN (04:11)
[2019-09-25] MEDS ORDERED: Acetaminophen 650 MG/20.3 ML UDCUP PO PRN (06:58)
[2019-09-25] MEDS ORDERED: Acetaminophen 650 MG Suppository PR PRN (06:58)
[2019-09-25] MEDS: Enoxaparin Sodium 40 MG/0.4 ML SYRINGE SC SCH (08:56)
[2019-09-25] MEDS: Acetaminophen 325 MG TAB PO PRN (09:05)
[2019-09-25] MEDS: Atorvastatin Calcium 40 MG TAB PO SCH (10:44)
[2019-09-25] MEDS: methylPREDNISolone Sod Succ 40 MG VIAL IVP SCH ×3 (10:45→21:49)
[2019-09-25] MEDS ORDERED: Lisinopril 5 MG TAB PO SCH (10:45)
[2019-09-25] MEDS ORDERED: guaiFENesin ER 600 MG TAB PO SCH ×2 (10:45→21:00)
[2019-09-25] MEDS ORDERED: Amlodipine 5 MG TAB PO SCH (10:45)
[2019-09-25] MEDS: Sodium Chloride 0.9% 1,000 ML IV SCH ×2 (10:46→23:21)
--- NOTE | 2019-09-25 16:46 | PDOC.HOSPP ---
- Subjective Encounter Date: 09/25/19 Encounter Time: 10:00 Subjective: Pt seen for followup re: pneumonia. Cough+, sputum+, fevers. - Objective Vital Signs & Weight: Vital Signs (12 hours) Temp Pulse Resp Pulse Ox 09/25/19 16:12 92 25 H 96 09/25/19 15:49 98.6 F 09/25/19 11:15 98.9 F 09/25/19 10:20 84 20 09/25/19 08:00 90 L 09/25/19 07:04 99.2 F Weight Weight 185 lb 3.2 oz Most Recent Monitor Data Heart Rate from ECG 90 NIBP 160/74 NIBP BP-Mean 102 Respiration from ECG 22 SpO2 95 I&O: 09/24/19 09/25/19 09/26/19 06:59 06:59 06:59 Intake Total 940 Output Total 800 700 Balance 140 -700 Result Diagrams: 09/25/19 03:15 09/25/19 03:15 Additional Labs: labs and MARs reviewed by md Hospitalist ROS - Review of Systems Respiratory: reports: cough, SOB with excertion, sputum, wheezing. denies: dry , shortness of breath, hemoptysis, pleuritic pain Cardiovascular: denies: chest pain, palpitations, orthopnea, paroxysmal noc. dyspnea, edema, light headedness - Medication Medications: Active Medications Generic Name Dose Route Start Last Admin Trade Name Freq PRN Reason Stop Dose Admin Acetaminophen 650 mg 09/25/19 06:58 09/25/19 09:05 Tylenol PO 650 mg Q4H PRN Administration Headache/Fever or Mild Pain Albuterol/Ipratropium 3 ml 09/24/19 22:02 09/25/19 16:12 Duoneb NEB 3 ml [id number] PRN Administration SOB &/or Wheezing Atorvastatin Calcium 40 mg 09/25/19 09:00 09/25/19 10:44 Lipitor PO 40 mg DAILY LIZZY Administration Enoxaparin Sodium 40 mg 09/25/19 09:00 09/25/19 08:56 Lovenox SC 40 mg 0900 LIZZY Administration Sodium Chloride 1,000 mls @ 75 mls/hr 09/25/19 10:00 09/25/19 10:46 Normal Saline 0.9% IV 1,000 mls .[id number] LIZZY Administration Methylprednisolone Sodium Succinate 40 mg 09/25/19 14:00 09/25/19 10:45 Solu-Medrol IVP 40 mg Q8HR LIZZY Administration Potassium Chloride 40 meq 09/24/19 22:04 09/25/19 04:11 K-Dur PO 40 meq ASDIR PRN Administration FOR SERUM K+ 2.5 - 3.5 Sodium Chloride 10 ml 09/25/19 09:00 09/25/19 08:56 Flush - Normal Saline IVF 10 ml Q12HR LIZZY Administration - Exam General Appearance: NAD Eye: anicteric sclera ENT: moist mucosa Neck: supple, no JVD Heart: RRR Respiratory: wheezes Gastrointestinal: soft, non-tender Extremities: no clubbing Skin: no rashes Musculoskeletal: no muscle wasting Psychiatric: normal affect, normal behavior Hosp A/P (1) Pneumonia Code(s): J18.9 - PNEUMONIA, UNSPECIFIED ORGANISM Status: Acute (2) Hypokalemia Code(s): E87.6 - HYPOKALEMIA Status: Acute (3) Acute respiratory failure with hypoxia Code(s): J96.01 - ACUTE RESPIRATORY FAILURE WITH HYPOXIA Status: Acute (4) HTN (hypertension) Code(s): I10 - ESSENTIAL (PRIMARY) HYPERTENSION Status: Chronic (5) Dyslipidemia Code(s): E78.5 - HYPERLIPIDEMIA, UNSPECIFIED Status: Chronic - Plan continue antibiotics, respiratory therapy, out of bed/ambulate Continue IV ceftriazone and azithromycin. Add scheduled bronchodilator nebs and IV steroids. Resume amlodipine and lisinopril. Monitor vital signs and titrate antihypertensives as needed. Continue statin.
[2019-09-25] MEDS: cefTRIAXone\\ROCEPHIN 1 GM in Sodium Chloride 0.9% 100 ML IVPB SCH (16:53)
[2019-09-25] MEDS: Azithromycin 500 MG in Sodium Chloride 0.9% 250 ML 250 ML IVPB SCH (19:56)
[2019-09-25] MEDS: guaiFENesin ER 600 MG TAB PO SCH (20:00)
--- NOTE | 2019-09-26 02:03 | CON ---
DATE OF CONSULTATION: 09/25/2019 HISTORY OF PRESENT ILLNESS: Cheikh Carlos is a pleasant woman, who is with her in [place] with family over the holidays. At the beginning of the year , two of the grandchildren had the flu. Both her and her developed a flu. After about 4 days he got over it, but she did not. They contacted the local clinic, who told her not to come in if she had the flu. She subsequently thought about going to the hospital, but then they decided to drive 14 hours back, so admitted back here. She put up with her symptoms until she started getting short of breath and subsequently presented to the emergency room and was admitted. She has no history of asthma. She is a nonsmoker. PAST MEDICAL HISTORY: Remarkable for; 1. PVC ablation in the past. 2. Knee surgery. 3. Shoulder surgery. 4. History of cholecystectomy. 5. History of lipid disorder. 6. History of hypertension. SOCIAL HISTORY: She is not a smoker. Not a daily drinker. ALLERGIES: SHE REPORTS ALLERGIES TO MACRODANTIN. MEDICATIONS: Prior to admission, she was on; 1. Atorvastatin. 2. Lisinopril. 3. Amlodipine. FAMILY HISTORY: No family history of lung disease in early age. REVIEW OF SYSTEMS: Ten point review of systems completed, otherwise negative. PHYSICAL EXAMINATION: GENERAL: She has no history of asthma. She is a nonsmoker. VITAL SIGNS: She is afebrile, heart rate is 92, respiratory rate is 18, oximetry is 98%. HEENT: Head and neck exam is unremarkable. She looks tired, but is in no distress. NECK: She has no cervical lymphadenopathy. LUNGS: Remarkable for very coarse wheezes diffusely. HEART: Regular rhythm, S1, S2 are normal. ABDOMEN: Soft and nontender. EXTREMITIES: Without clubbing, cyanosis, or edema. LABORATORY DATA: Chest radiograph is remarkable for mild bilateral patchy infiltrates. White count 13.8, hemoglobin 11.6, platelets 305,000. Sodium 136, potassium 3.4, chloride 104, bicarb 22, BUN 6, creatinine 0.54, albumin is 2.9. IMPRESSION: Asthmatic bronchitis accounting for the majority of her symptoms. Chest radiograph certainly would not lead me to believe that she was short of breath as she described. She actually says she was scared when she came in. Increase in frequency of nebulizer treatments and continuing with IV steroids will be helpful. I agree with IV antimicrobial therapy. She probably has a small component of a post influenza pneumonia, most likely Streptococcus. Blood cultures are negative so far. Surprisingly, her flu swab was negative. Her grandchildren had influenza B. We will follow with the other physicians caring for. This is a 70 minute consult, with greater than 50% of time spent on unit coordinating care. Job ID: [id number] MTDD
[2019-09-26 04:41] LABS: Anion Gap 14 mmol/L (10-20); BUN (Urea Nitrogen) 7 mg/dL (9.8-20.1); Calc. Creatinine Clearance 140 mL/min (70-130); Calcium 8.6 mg/dL (7.8-10.44); Carbon Dioxide 24 mmol/L (23-31); Chloride 103 mmol/L (98-107); Estimated GFR-MDRD Greater than 90; Glucose 181 mg/dL (80-115); Potassium 3.1 mmol/L (3.5-5.1); Sodium 138 mmol/L (136-145)
[2019-09-26] MEDS: methylPREDNISolone Sod Succ 40 MG VIAL IVP SCH ×3 (05:31→22:50)
[2019-09-26] MEDS: Potassium Chloride 20 MEQ TAB PO PRN (05:31)
[2019-09-26] MEDS: Amlodipine 5 MG TAB PO SCH (08:40)
[2019-09-26] MEDS: guaiFENesin ER 600 MG TAB PO SCH ×2 (08:40→20:13)
[2019-09-26] MEDS: Atorvastatin Calcium 40 MG TAB PO SCH (08:41)
[2019-09-26] MEDS: Enoxaparin Sodium 40 MG/0.4 ML SYRINGE SC SCH (08:41)
[2019-09-26] MEDS: Acetaminophen 325 MG TAB PO PRN (08:41)
[2019-09-26] MEDS: Lisinopril 5 MG TAB PO SCH (08:41)
[2019-09-26] MEDS ORDERED: Cepastat Lozenges 1 LOZ PO PRN (09:44)
[2019-09-26] MEDS ORDERED: Cepastat Lozenges 1 LOZ PO SCH (10:15)
[2019-09-26 10:43] LABS: #Lymphocytes 0.6 thou/uL (1.20-3.40); #Monocytes 0.3 thou/uL (0.11-0.59); #Neutrophils 12.2 thou/uL (1.40-6.50); %Basophils 0.1 % (0.0-1.0); %Eosinophils 0.1 % (0.0-10.0); %Lymphocytes 4.9 % (21.0-51.0); %Monocytes 2.2 % (0.0-10.0); %Neutrophils 92.7 % (42.0-75.0); Hemoglobin 11.1 g/dL (12.0-16.0); Mean Corpuscular HGB CONC 34.3 g/dL (32.0-36.0); Mean Corpuscular Volume 87.4 fL (78.0-98.0); Platelet Count 284 thou/uL (130-400); RBC Distribution Width 12.5 % (11.5-14.5); Red Blood Cell (RBC) Count 3.71 mill/uL (4.20-5.40); White Blood Cell (WBC) Count 13.1 thou/uL (4.8-10.8)
[2019-09-26] MEDS: Sodium Chloride 0.9% 1,000 ML IV SCH (12:00)
--- NOTE | 2019-09-26 14:16 | PDOC.HOSPP ---
- Subjective Encounter Date: 09/26/19 Encounter Time: 09:20 Subjective: Pt seen for followup re: pneumonia. feels slightly better. Cough+, sputum+. - Objective Vital Signs & Weight: Vital Signs (12 hours) Temp Pulse Resp Pulse Ox 09/26/19 11:21 101 H 22 H 97 09/26/19 11:17 97.9 F 09/26/19 08:00 100 09/26/19 07:51 88 16 94 L 09/26/19 07:17 98.7 F 09/26/19 03:39 98.7 F 09/26/19 02:23 94 16 95 Weight Weight 186 lb Most Recent Monitor Data Heart Rate from ECG 88 NIBP 152/65 NIBP BP-Mean 94 Respiration from ECG 21 SpO2 97 I&O: 09/25/19 09/26/19 09/27/19 06:59 06:59 06:59 Intake Total 940 3552 1275 Output Total 800 1550 1000 Balance 140 2002 275 Result Diagrams: 09/26/19 10:37 09/26/19 03:54 Additional Labs: Labs and MARs reviewed by ct Hospitalist ROS - Review of Systems Respiratory: reports: cough, sputum, wheezing. denies: dry, shortness of breath , hemoptysis, SOB with excertion, pleuritic pain Cardiovascular: denies: chest pain, palpitations, orthopnea, paroxysmal noc. dyspnea, edema, light headedness - Medication Medications: Active Medications Generic Name Dose Route Start Last Admin Trade Name Freq PRN Reason Stop Dose Admin Acetaminophen 650 mg 09/25/19 06:58 09/26/19 08:41 Tylenol PO 650 mg Q4H PRN Administration Headache/Fever or Mild Pain Albuterol/Ipratropium 3 ml 09/24/19 22:02 09/25/19 16:12 Duoneb NEB 3 ml [id number] PRN Administration SOB &/or Wheezing Albuterol/Ipratropium 3 ml 09/25/19 18:30 09/26/19 11:21 Duoneb NEB 3 ml [id number] LIZZY Administration Amlodipine Besylate 10 mg 09/26/19 09:00 09/26/19 08:40 Norvasc PO 10 mg DAILY LIZZY Administration Atorvastatin Calcium 40 mg 09/25/19 09:00 09/26/19 08:41 Lipitor PO 40 mg DAILY LIZZY Administration Enoxaparin Sodium 40 mg 09/25/19 09:00 09/26/19 08:41 Lovenox SC 40 mg 0900 LIZZY Administration Guaifenesin 1,200 mg 09/25/19 21:00 09/26/19 08:40 Mucinex PO 1,200 mg Q12HR LIZZY Administration Azithromycin 500 mg/ Sodium 250 mls @ 250 mls/hr 09/25/19 20:00 09/25/19 19: 56 Chloride IVPB 250 mls Q24HR@2000 LIZZY Administration Ceftriaxone Sodium 1 gm/ 100 mls @ 200 mls/hr 09/25/19 18:00 09/25/19 16:53 Sodium Chloride IVPB 100 mls Q24HR@1800 LIZZY Administration Sodium Chloride 1,000 mls @ 75 mls/hr 09/25/19 10:00 09/26/19 12:00 Normal Saline 0.9% IV 1,000 mls .[id number] LIZZY Administration Lisinopril 5 mg 09/26/19 09:00 09/26/19 08:41 Zestril PO 5 mg DAILY LIZZY Administration Methylprednisolone Sodium Succinate 40 mg 09/25/19 14:00 09/26/19 13:55 Solu-Medrol IVP 40 mg Q8HR LIZZY Administration Potassium Chloride 40 meq 09/24/19 22:04 09/26/19 05:31 K-Dur PO 40 meq ASDIR PRN Administration FOR SERUM K+ 2.5 - 3.5 Sodium Chloride 10 ml 09/25/19 09:00 09/26/19 08:41 Flush - Normal Saline IVF 10 ml Q12HR LIZZY Administration - Exam General Appearance: NAD Eye: anicteric sclera ENT: moist mucosa Neck: supple Heart: RRR Respiratory: wheezes Gastrointestinal: soft, non-tender Skin: no rashes Psychiatric: normal affect, normal behavior Hosp A/P (1) Pneumonia Code(s): J18.9 - PNEUMONIA, UNSPECIFIED ORGANISM Status: Acute (2) Hypokalemia Code(s): E87.6 - HYPOKALEMIA Status: Acute (3) Acute respiratory failure with hypoxia Code(s): J96.01 - ACUTE RESPIRATORY FAILURE WITH HYPOXIA Status: Acute (4) HTN (hypertension) Code(s): I10 - ESSENTIAL (PRIMARY) HYPERTENSION Status: Chronic (5) Dyslipidemia Code(s): E78.5 - HYPERLIPIDEMIA, UNSPECIFIED Status: Chronic - Plan plan discussed w/ family, continue antibiotics, respiratory therapy Pt clinically improving. Continue IV ceftriazone and azithromycin. Continue bronchodilator nebs and IV steroids. HTN controlled. Continue statin. Replace potassium.
[2019-09-26] MEDS: cefTRIAXone\\ROCEPHIN 1 GM in Sodium Chloride 0.9% 100 ML IVPB SCH (18:09)
[2019-09-26] MEDS: Azithromycin 500 MG in Sodium Chloride 0.9% 250 ML 250 ML IVPB SCH (20:14)
--- NOTE | 2019-09-27 00:01 | PRG ---
DATE OF SERVICE: 09/26/2019 SUBJECTIVE: Cheikh Carlos is in no distress. OBJECTIVE: VITAL SIGNS: She is afebrile. Oximetry is 96% on 3 L, blood pressure 167/78, respiratory rate in the 20s to low 30s. LUNGS: Remarkable still for coarse wheezes, but she is moving more air than yesterday and she has a much more vigorous cough. HEART: Regular rhythm. ABDOMEN: Soft and nontender. EXTREMITIES: Without asymmetry or edema. NEUROLOGIC: Nonfocal. LABORATORY DATA: White count 13.1, hemoglobin 11.1, platelets 284. Electrolytes are unremarkable except for potassium of 3.1. IMPRESSION: Community-acquired pneumonia on top of asthmatic bronchitis after probably the flu. She continues to improve. She says she feels much better than yesterday. She actually has an appetite today. We will continue to follow. Job ID: [id number]
[2019-09-27 03:32] LABS: #Basophils 0.1 thou/uL (0.0-0.2); #Lymphocytes 0.7 thou/uL (1.20-3.40); #Monocytes 0.3 thou/uL (0.11-0.59); #Neutrophils 11.5 thou/uL (1.40-6.50); %Basophils 0.6 % (0.0-1.0); %Eosinophils 0.3 % (0.0-10.0); %Lymphocytes 5.6 % (21.0-51.0); %Monocytes 2.3 % (0.0-10.0); %Neutrophils 91.2 % (42.0-75.0); Hemoglobin 11.8 g/dL (12.0-16.0); Mean Corpuscular HGB CONC 33.2 g/dL (32.0-36.0); Mean Corpuscular Hemoglobin 29.7 pg (27.0-31.0); Mean Corpuscular Volume 89.5 fL (78.0-98.0); Mean Platelet Volume 7.2 fL (7.4-10.4); Platelet Count 366 thou/uL (130-400); RBC Distribution Width 12.7 % (11.5-14.5); Red Blood Cell (RBC) Count 3.97 mill/uL (4.20-5.40); White Blood Cell (WBC) Count 12.7 thou/uL (4.8-10.8)
[2019-09-27 03:54] LABS: Anion Gap 13 mmol/L (10-20); BUN (Urea Nitrogen) 10 mg/dL (9.8-20.1); Calc. Creatinine Clearance 138 mL/min (70-130); Calcium 8.6 mg/dL (7.8-10.44); Carbon Dioxide 25 mmol/L (23-31); Chloride 105 mmol/L (98-107); Estimated GFR-MDRD Greater than 90; Glucose 161 mg/dL (80-115); Potassium 3.3 mmol/L (3.5-5.1); Sodium 140 mmol/L (136-145)
[2019-09-27] MEDS: Sodium Chloride 0.9% 1,000 ML IV SCH ×2 (05:49→16:25)
[2019-09-27] MEDS: methylPREDNISolone Sod Succ 40 MG VIAL IVP SCH ×3 (05:53→21:12)
[2019-09-27] MEDS ORDERED: Cefdinir 300 MG CAP PO SCH (09:15)
[2019-09-27] MEDS: Enoxaparin Sodium 40 MG/0.4 ML SYRINGE SC SCH (09:49)
[2019-09-27] MEDS: guaiFENesin ER 600 MG TAB PO SCH ×2 (09:49→21:11)
[2019-09-27] MEDS: Atorvastatin Calcium 40 MG TAB PO SCH (09:50)
[2019-09-27] MEDS: Lisinopril 5 MG TAB PO SCH (09:50)
[2019-09-27] MEDS: Amlodipine 5 MG TAB PO SCH (09:50)
--- NOTE | 2019-09-27 12:31 | PQF ---
CLINICAL DOCUMENTATION IMPROVEMENT CLARIFICATION FORM: ICD-10 Updated PLEASE DO AN ADDENDUM TO THE PROGRESS NOTE WITH ANY DOCUMENTATION UPDATES OR ADDITIONS AND CARRY THROUGH TO DC SUMMARY. THANK YOU. DATE: 09/27/19 ATTN : DR. HACKETT Please exercise your independent, professional judgment in responding to the clarification form. Clinical indicators are provided on the bottom of this form for your review Please check appropriate box(es): [ ] Sepsis due to: (Pna, UTI, gangrenous gall bladder, etc.) Due to: [ ] Device (please specify) [ ] Implant [ ] Graft [ ] Infusion [ ] SIRS due to non-infectious process (please specify etiology) [ ] with organ dysfunction [ ] without organ dysfunction [ ] Severe sepsis with acute organ dysfunction of: (Examples: respiratory failure, encephalopathy, acute kidney failure, other) [ ] Septic Shock [ ] Localized infection without sepsis [ ] Other diagnosis [ ] Unable to determine In addition, please specify: Present on Admission (POA): [ ] Yes [ ] No [ ] Unable to determine For continuity of documentation, please document condition throughout progress notes and discharge summary. Thank You. CLINICAL INDICATORS - SIGNS / SYMPTOMS / LABS / RESULTS AND LOCATION IN MR ER NOTE: "SEPSIS CONSIDERED" RR 32 PULSE 102 WBC 09/24: 19 BANDS 1: 16 RISKS: PNEUMONIA (ER NOTE) FLU + (H&P 09/24) TREATMENT: IV AZITHROMYCIN (ER-09/26) IV ROCEPHIN (ER-09/26) OMNICEF (STARTED 09/27) IV FLUIDS (ER-PRESENT) BIPAP (PLACED IN ER) BLOOD CULTURES AND NASAL SWAB 09/24 (This form is maintained as a part of the permanent medical record) 2014 [employer]. All Rights Reserved [email or web address] Office: [phone] [facility]
--- NOTE | 2019-09-27 13:06 | PDOC.HOSPP ---
- Subjective Encounter Date: 09/27/19 Encounter Time: 10:00 Subjective: Pt seen for followup re: pneumonia. Feels better today. - Objective Vital Signs & Weight: Vital Signs (12 hours) Temp Pulse Resp Pulse Ox 09/27/19 11:36 101 H 20 95 09/27/19 11:20 98.3 F 09/27/19 09:50 90 09/27/19 08:00 94 L 09/27/19 07:24 98.0 F 09/27/19 06:33 96 09/27/19 06:21 90 16 96 09/27/19 04:19 97.9 F 09/27/19 02:25 97 Weight Weight 185 lb 14.4 oz Most Recent Monitor Data Heart Rate from ECG 94 NIBP 161/70 NIBP BP-Mean 100 Respiration from ECG 22 SpO2 96 I&O: 09/26/19 09/27/19 09/28/19 06:59 06:59 06:59 Intake Total 3552 3520 1245 Output Total 1550 4450 700 Balance 2001930 545 Result Diagrams: 09/27/19 03:15 09/27/19 03:15 Additional Labs: Labs and MARs reviewed by nj Hospitalist ROS - Review of Systems Respiratory: reports: cough, sputum, wheezing. denies: dry, shortness of breath , hemoptysis, SOB with excertion, pleuritic pain Cardiovascular: denies: chest pain, palpitations, orthopnea, paroxysmal noc. dyspnea, edema, light headedness Skin: denies: rash, lesions, francis, bruising - Medication Medications: Active Medications Generic Name Dose Route Start Last Admin Trade Name Stoneyq PRN Reason Stop Dose Admin Acetaminophen 650 mg 09/25/19 06:58 09/26/19 08:41 Tylenol PO 650 mg Q4H PRN Administration Headache/Fever or Mild Pain Albuterol/Ipratropium 3 ml 09/24/19 22:02 09/25/19 16:12 Duoneb NEB 3 ml [id number] PRN Administration SOB &/or Wheezing Albuterol/Ipratropium 3 ml 09/25/19 18:30 09/27/19 11:36 Duoneb NEB 3 ml [id number] LIZZY Administration Amlodipine Besylate 10 mg 09/26/19 09:00 09/27/19 09:50 Norvasc PO 10 mg DAILY LIZZY Administration Atorvastatin Calcium 40 mg 09/25/19 09:00 09/27/19 09:50 Lipitor PO 40 mg DAILY LIZZY Administration Enoxaparin Sodium 40 mg 09/25/19 09:00 09/27/19 09:49 Lovenox SC 40 mg 0900 LIZZY Administration Guaifenesin 1,200 mg 09/25/19 21:00 09/27/19 09:49 Mucinex PO 1,200 mg Q12HR LIZZY Administration Sodium Chloride 1,000 mls @ 75 mls/hr 09/25/19 10:00 09/27/19 05:49 Normal Saline 0.9% IV 1,000 mls .[id number] LIZZY Administration Lisinopril 5 mg 09/26/19 09:00 09/27/19 09:50 Zestril PO 5 mg DAILY LIZZY Administration Methylprednisolone Sodium Succinate 40 mg 09/25/19 14:00 09/27/19 05:53 Solu-Medrol IVP 40 mg Q8HR LIZZY Administration Potassium Chloride 40 meq 09/24/19 22:04 09/26/19 05:31 K-Dur PO 40 meq ASDIR PRN Administration FOR SERUM K+ 2.5 - 3.5 Sodium Chloride 10 ml 09/25/19 09:00 09/27/19 09:50 Flush - Normal Saline IVF 10 ml Q12HR LIZZY Administration - Exam General Appearance: NAD Eye: anicteric sclera ENT: moist mucosa Neck: supple Heart: RRR Respiratory: wheezes Gastrointestinal: soft, non-tender Extremities: no cyanosis, no clubbing Skin: no lesions, no rashes Psychiatric: normal affect, normal behavior Hosp A/P (1) Pneumonia Code(s): J18.9 - PNEUMONIA, UNSPECIFIED ORGANISM Status: Acute (2) Hypokalemia Code(s): E87.6 - HYPOKALEMIA Status: Acute (3) Acute respiratory failure with hypoxia Code(s): J96.01 - ACUTE RESPIRATORY FAILURE WITH HYPOXIA Status: Acute (4) HTN (hypertension) Code(s): I10 - ESSENTIAL (PRIMARY) HYPERTENSION Status: Chronic (5) Dyslipidemia Code(s): E78.5 - HYPERLIPIDEMIA, UNSPECIFIED Status: Chronic (6) Sepsis Code(s): A41.9 - SEPSIS, UNSPECIFIED ORGANISM Status: Resolved Plan: sepsis due to pneumonia, present on admission - Plan Pt clinically improved Start cefdinir, discontinue azithromycin and ceftriaxone. Continue bronchodilator nebs and IV steroids. HTN controlled. Replace potassium. Transfer to medical floor.
--- NOTE | 2019-09-27 17:07 | PRG ---
DATE OF SERVICE: 09/27/2019 SUBJECTIVE: Cheikh Carlos is walking around the room, saying she feels 100% better. OBJECTIVE: VITAL SIGNS: She is afebrile. Heart rate is in 80s to 90s, respiratory rates in the low 20s, oximetry is 97 on 2 L, blood pressure 148/73. LUNGS: Still remarkable for crackles bilaterally. HEART: Regular rhythm. ABDOMEN: Soft. She is on p.o. antimicrobial therapy now. Steroid dosing can be decreased at this point, although she is still intermittently bronchospastic despite the history she provides. When I examined her initially, she was pretty clear, but then I re-examined her before I walked out of the room after she stood up and she still had some wheezes. Hopefully, she will be a candidate to go home in 24 to 48 hours. She should probably go home with a nebulizer. I will continue to follow. Job ID: [id number]
[2019-09-27] MEDS: Cefdinir 300 MG CAP PO SCH (21:11)
[2019-09-28] MEDS: methylPREDNISolone Sod Succ 40 MG VIAL IVP SCH (05:08)
[2019-09-28] MEDS: Sodium Chloride 0.9% 1,000 ML IV SCH (05:09)
[2019-09-28 05:12] LABS: #Eosinphils 0.1 thou/uL (0.0-0.7); #Monocytes 0.6 thou/uL (0.11-0.59); #Neutrophils 9.1 thou/uL (1.40-6.50); %Basophils 0.1 % (0.0-1.0); %Eosinophils 0.7 % (0.0-10.0); %Lymphocytes 9.2 % (21.0-51.0); %Monocytes 5.5 % (0.0-10.0); %Neutrophils 84.6 % (42.0-75.0); Hemoglobin 11.5 g/dL (12.0-16.0); Mean Corpuscular HGB CONC 32.2 g/dL (32.0-36.0); Mean Corpuscular Hemoglobin 28.5 pg (27.0-31.0); Mean Corpuscular Volume 88.6 fL (78.0-98.0); Mean Platelet Volume 7.1 fL (7.4-10.4); Platelet Count 401 thou/uL (130-400); RBC Distribution Width 12.9 % (11.5-14.5); Red Blood Cell (RBC) Count 4.02 mill/uL (4.20-5.40); White Blood Cell (WBC) Count 10.7 thou/uL (4.8-10.8)
[2019-09-28 05:34] LABS: Anion Gap 12 mmol/L (10-20); BUN (Urea Nitrogen) 9 mg/dL (9.8-20.1); Calc. Creatinine Clearance 138 mL/min (70-130); Calcium 8.6 mg/dL (7.8-10.44); Carbon Dioxide 26 mmol/L (23-31); Chloride 104 mmol/L (98-107); Estimated GFR-MDRD Greater than 90; Glucose 133 mg/dL (80-115); Potassium 3.1 mmol/L (3.5-5.1); Sodium 139 mmol/L (136-145)
[2019-09-28] MEDS: Cefdinir 300 MG CAP PO SCH ×2 (08:32→21:23)
[2019-09-28] MEDS: Atorvastatin Calcium 40 MG TAB PO SCH (08:32)
[2019-09-28] MEDS: guaiFENesin ER 600 MG TAB PO SCH ×2 (08:32→21:23)
[2019-09-28] MEDS: Amlodipine 5 MG TAB PO SCH (08:32)
[2019-09-28] MEDS: Lisinopril 5 MG TAB PO SCH (08:33)
[2019-09-28] MEDS: Enoxaparin Sodium 40 MG/0.4 ML SYRINGE SC SCH (08:33)
[2019-09-28] MEDS ORDERED: predniSONE 20 MG TAB PO SCH (11:30)
[2019-09-28] MEDS ORDERED: Lisinopril 5 MG TAB PO SCH (11:30)
--- NOTE | 2019-09-28 12:02 | PRG ---
DATE OF SERVICE: 09/28/2019 SUBJECTIVE: Ms. Cheikh Carlos is afebrile. OBJECTIVE: VITAL SIGNS: Heart rate in the 90s, blood pressure 150/81, respiratory rate 20s, and oximetry is 97. Lungs: Essentially unchanged. Heart: Essentially unchanged. ABDOMEN: Essentially unchanged. She is less dyspneic, but still bronchospastic. IMPRESSION: 1. Pneumonia. 2. Asthmatic bronchitis. 3. Probable flu is the initial illness. PLAN: Plan will be to switch to all p.o. medications. Today, her IV can be discontinued. Hopefully, she will be a candidate to go home in 24 to 48 hours. Job ID: [id number]
--- NOTE | 2019-09-28 13:56 | PDOC.HOSPP ---
- Subjective Encounter Date: 09/28/19 Encounter Time: 08:00 Subjective: Pt seen for followup re: pneumonia. Feels much better. - Objective Vital Signs & Weight: Vital Signs (12 hours) Temp Pulse Resp BP BP Pulse Ox 09/28/19 12:15 97.8 F 95 20 144/74 H 95 09/28/19 12:10 95 09/28/19 12:08 102 H 144/74 H 09/28/19 10:30 97 22 H 97 09/28/19 08:33 90 152/81 H 09/28/19 08:32 90 152/81 H 97 09/28/19 08:00 97.8 F 90 20 152/81 H 99 09/28/19 06:43 90 18 95 09/28/19 03:14 97.9 F 92 16 148/74 H 98 09/28/19 03:07 94 16 Weight Weight 189 lb 9.6 oz Most Recent Monitor Data Heart Rate from ECG 94 NIBP 161/70 NIBP BP-Mean 100 Respiration from ECG 22 SpO2 96 I&O: 09/27/19 09/28/19 09/29/19 06:59 06:59 06:59 Intake Total 3520 3225 465 Output Total 4450 700 Balance -930 2525 465 Result Diagrams: 09/28/19 05:05 09/28/19 05:05 Additional Labs: Labs and MARs reviewed by co Hospitalist ROS - Review of Systems Respiratory: reports: cough, sputum. denies: dry, shortness of breath, hemoptysis, SOB with excertion, pleuritic pain, wheezing Cardiovascular: denies: chest pain, palpitations, orthopnea, paroxysmal noc. dyspnea, edema, light headedness - Medication Medications: Active Medications Generic Name Dose Route Start Last Admin Trade Name Freq PRN Reason Stop Dose Admin Acetaminophen 650 mg 09/25/19 06:58 09/26/19 08:41 Tylenol PO 650 mg Q4H PRN Administration Headache/Fever or Mild Pain Albuterol/Ipratropium 3 ml 09/24/19 22:02 09/25/19 16:12 Duoneb NEB 3 ml [id number] PRN Administration SOB &/or Wheezing Albuterol/Ipratropium 3 ml 09/25/19 18:30 09/28/19 10:30 Duoneb NEB 3 ml [id number] LIZZY Administration Amlodipine Besylate 10 mg 09/26/19 09:00 09/28/19 08:32 Norvasc PO 10 mg DAILY LIZZY Administration Atorvastatin Calcium 40 mg 09/25/19 09:00 09/28/19 08:32 Lipitor PO 40 mg DAILY LIZZY Administration Cefdinir 300 mg 09/27/19 21:00 09/28/19 08:32 Omnicef PO 300 mg BID LIZZY Administration Enoxaparin Sodium 40 mg 09/25/19 09:00 09/28/19 08:33 Lovenox SC 40 mg 0900 LIZZY Administration Guaifenesin 1,200 mg 09/25/19 21:00 09/28/19 08:32 Mucinex PO 1,200 mg Q12HR LIZZY Administration Potassium Chloride 40 meq 09/24/19 22:04 09/26/19 05:31 K-Dur PO 40 meq ASDIR PRN Administration FOR SERUM K+ 2.5 - 3.5 Sodium Chloride 10 ml 09/25/19 09:00 09/28/19 08:35 Flush - Normal Saline IVF 10 ml Q12HR LIZZY Administration - Exam General Appearance: NAD Eye: anicteric sclera ENT: moist mucosa Neck: supple Heart: RRR Respiratory: CTAB, no wheezes Gastrointestinal: soft, non-tender Extremities: no cyanosis, no clubbing Musculoskeletal: normal tone, normal strength Psychiatric: normal affect, normal behavior Hosp A/P (1) Pneumonia Code(s): J18.9 - PNEUMONIA, UNSPECIFIED ORGANISM Status: Acute (2) Hypokalemia Code(s): E87.6 - HYPOKALEMIA Status: Acute (3) Acute respiratory failure with hypoxia Code(s): J96.01 - ACUTE RESPIRATORY FAILURE WITH HYPOXIA Status: Acute (4) HTN (hypertension) Code(s): I10 - ESSENTIAL (PRIMARY) HYPERTENSION Status: Chronic (5) Dyslipidemia Code(s): E78.5 - HYPERLIPIDEMIA, UNSPECIFIED Status: Chronic (6) Sepsis Code(s): A41.9 - SEPSIS, UNSPECIFIED ORGANISM Status: Resolved - Plan respiratory therapy, out of bed/ambulate saline lock Switch to oral steroids Wean off supplemental oxygen Pt clinically improved Continue cefdinir HTN controlled. Replace potassium.
[2019-09-28] MEDS: Potassium Chloride 20 MEQ TAB PO SCH ×2 (14:27→18:04)
[2019-09-29 05:29] LABS: #Eosinphils 0.1 thou/uL (0.0-0.7); #Lymphocytes 1.7 thou/uL (1.20-3.40); #Monocytes 0.9 thou/uL (0.11-0.59); %Basophils 0.1 % (0.0-1.0); %Lymphocytes 19.9 % (21.0-51.0); %Monocytes 10.3 % (0.0-10.0); %Neutrophils 68.6 % (42.0-75.0); Hemoglobin 11.7 g/dL (12.0-16.0); Mean Corpuscular HGB CONC 33.1 g/dL (32.0-36.0); Mean Corpuscular Hemoglobin 29.7 pg (27.0-31.0); Mean Corpuscular Volume 89.7 fL (78.0-98.0); Mean Platelet Volume 7.2 fL (7.4-10.4); Platelet Count 391 thou/uL (130-400); RBC Distribution Width 12.9 % (11.5-14.5); Red Blood Cell (RBC) Count 3.92 mill/uL (4.20-5.40); White Blood Cell (WBC) Count 8.7 thou/uL (4.8-10.8)
[2019-09-29 05:40] LABS: Anion Gap 12 mmol/L (10-20); BUN (Urea Nitrogen) 11 mg/dL (9.8-20.1); Calc. Creatinine Clearance 148 mL/min (70-130); Calcium 8.2 mg/dL (7.8-10.44); Carbon Dioxide 27 mmol/L (23-31); Chloride 105 mmol/L (98-107); Estimated GFR-MDRD Greater than 90; Glucose 105 mg/dL (80-115); Potassium 3.4 mmol/L (3.5-5.1); Sodium 141 mmol/L (136-145)
[2019-09-29] MEDS: guaiFENesin ER 600 MG TAB PO SCH ×2 (08:39→20:53)
[2019-09-29] MEDS: Lisinopril 10 MG TAB PO SCH (08:39)
[2019-09-29] MEDS: Atorvastatin Calcium 40 MG TAB PO SCH (08:39)
[2019-09-29] MEDS: Amlodipine 5 MG TAB PO SCH (08:39)
[2019-09-29] MEDS: predniSONE 20 MG TAB PO SCH (08:39)
[2019-09-29] MEDS: Cefdinir 300 MG CAP PO SCH ×2 (08:39→20:53)
[2019-09-29] MEDS: Enoxaparin Sodium 40 MG/0.4 ML SYRINGE SC SCH (08:40)
[2019-09-29] MEDS ORDERED: Potassium Chloride 20 MEQ TAB PO SCH (09:30)
--- NOTE | 2019-09-29 19:21 | PDOC.HOSPP ---
- Subjective Encounter Date: 09/29/19 Encounter Time: 18:00 Subjective: Pt seen for followup re: pneumonia. Feels better. SOBOE. - Objective Vital Signs & Weight: Vital Signs (12 hours) Temp Pulse Resp BP BP Pulse Ox 09/29/19 18:58 94 L 09/29/19 18:57 16 94 L 09/29/19 15:22 98.1 F 87 20 134/79 96 09/29/19 14:00 110 H 16 09/29/19 10:59 97.8 F 80 16 135/74 97 09/29/19 08:39 81 150/76 H 09/29/19 08:01 82 14 Weight Weight 189 lb 9.561 oz Most Recent Monitor Data Heart Rate from ECG 94 NIBP 161/70 NIBP BP-Mean 100 Respiration from ECG 22 SpO2 96 I&O: 09/28/19 09/29/19 09/30/19 06:59 06:59 06:59 Intake Total 3225 1954 Output Total 700 Balance 2525 1954 Result Diagrams: 09/29/19 04:53 09/29/19 04:53 Additional Labs: Labs and MARs reviewed by sd Hospitalist ROS - Review of Systems Constitutional: denies: fever, chills, sweats, weakness, malaise Respiratory: reports: cough, SOB with excertion, sputum Cardiovascular: denies: chest pain, palpitations, orthopnea, paroxysmal noc. dyspnea, edema, light headedness - Medication Medications: Active Medications Generic Name Dose Route Start Last Admin Trade Name Freq PRN Reason Stop Dose Admin Acetaminophen 650 mg 09/25/19 06:58 09/26/19 08:41 Tylenol PO 650 mg Q4H PRN Administration Headache/Fever or Mild Pain Albuterol/Ipratropium 3 ml 09/24/19 22:02 09/25/19 16:12 Duoneb NEB 3 ml [id number] PRN Administration SOB &/or Wheezing Albuterol/Ipratropium 3 ml 09/25/19 18:30 09/29/19 18:57 Duoneb NEB 3 ml [id number] LIZZY Administration Amlodipine Besylate 10 mg 09/26/19 09:00 09/29/19 08:39 Norvasc PO 10 mg DAILY LIZZY Administration Atorvastatin Calcium 40 mg 09/25/19 09:00 09/29/19 08:39 Lipitor PO 40 mg DAILY LIZZY Administration Cefdinir 300 mg 09/27/19 21:00 09/29/19 08:39 Omnicef PO 300 mg BID LIZZY Administration Enoxaparin Sodium 40 mg 09/25/19 09:00 09/29/19 08:40 Lovenox SC 40 mg 0900 LIZZY Administration Guaifenesin 1,200 mg 09/25/19 21:00 09/29/19 08:39 Mucinex PO 1,200 mg Q12HR LIZZY Administration Lisinopril 10 mg 09/29/19 09:00 09/29/19 08:39 Zestril PO 10 mg DAILY LIZZY Administration Potassium Chloride 40 meq 09/24/19 22:04 09/26/19 05:31 K-Dur PO 40 meq ASDIR PRN Administration FOR SERUM K+ 2.5 - 3.5 Prednisone 40 mg 09/29/19 08:00 09/29/19 08:39 Prednisone PO 40 mg QAM-WM LIZZY Administration Sodium Chloride 10 ml 09/25/19 09:00 09/29/19 08:41 Flush - Normal Saline IVF Not Given Q12HR LIZZY - Exam General Appearance: awake alert Eye: anicteric sclera ENT: no oropharyngeal lesions, moist mucosa Neck: supple Heart: RRR, no rubs Respiratory: CTAB Gastrointestinal: soft, non-tender Musculoskeletal: no muscle wasting Psychiatric: normal affect, normal behavior Hosp A/P (1) Pneumonia Code(s): J18.9 - PNEUMONIA, UNSPECIFIED ORGANISM Status: Acute (2) Hypokalemia Code(s): E87.6 - HYPOKALEMIA Status: Acute (3) Acute respiratory failure with hypoxia Code(s): J96.01 - ACUTE RESPIRATORY FAILURE WITH HYPOXIA Status: Acute (4) HTN (hypertension) Code(s): I10 - ESSENTIAL (PRIMARY) HYPERTENSION Status: Chronic (5) Dyslipidemia Code(s): E78.5 - HYPERLIPIDEMIA, UNSPECIFIED Status: Chronic (6) Sepsis Code(s): A41.9 - SEPSIS, UNSPECIFIED ORGANISM Status: Resolved - Plan plan discussed w/ family, continue antibiotics, out of bed/ambulate Continue oral steroids. Pt clinically improved Continue cefdinir HTN controlled. Replace potassium. Home tomorrow if oxygenation is stable.
--- NOTE | 2019-09-29 19:50 | PRG ---
DATE OF SERVICE: 09/29/2019 SUBJECTIVE: Cheikh Carlos is feeling better. She is on room air now. She is ambulating in the fisher. OBJECTIVE: VITAL SIGNS: Her saturations are up to 94%. She is afebrile. Heart rates in 80s, respiratory rates in the 20s, blood pressure 134/79. LUNGS: Essentially unchanged. HEART: Essentially unchanged. ABDOMEN: Essentially unchanged. IMPRESSION: Pneumonia after influenza. Clinically, she is improving. Hopefully, we can discharge her in the morning if she has a good night. Job ID: [id number]
[2019-09-30 05:47] LABS: Anion Gap 12 mmol/L (10-20); BUN (Urea Nitrogen) 9 mg/dL (9.8-20.1); Calc. Creatinine Clearance 150 mL/min (70-130); Calcium 8.2 mg/dL (7.8-10.44); Carbon Dioxide 27 mmol/L (23-31); Chloride 103 mmol/L (98-107); Estimated GFR-MDRD Greater than 90; Glucose 86 mg/dL (80-115); Potassium 3.4 mmol/L (3.5-5.1); Sodium 139 mmol/L (136-145)
[2019-09-30] MEDS: predniSONE 20 MG TAB PO SCH (08:21)
[2019-09-30] MEDS: Cefdinir 300 MG CAP PO SCH (08:22)
[2019-09-30] MEDS: Atorvastatin Calcium 40 MG TAB PO SCH (08:22)
[2019-09-30] MEDS: guaiFENesin ER 600 MG TAB PO SCH (08:22)
[2019-09-30] MEDS: Amlodipine 5 MG TAB PO SCH (08:23)
[2019-09-30] MEDS: Lisinopril 10 MG TAB PO SCH (08:23)
[2019-09-30] MEDS: Enoxaparin Sodium 40 MG/0.4 ML SYRINGE SC SCH (08:26)
[2019-09-30] MEDS ORDERED: Potassium Chloride 20 MEQ TAB PO SCH (10:30)
[2019-09-30 11:49] VITALS: BP 143/82; TEMP 97.6
--- NOTE | 2019-09-30 13:59 | PRG ---
DATE OF SERVICE: 09/30/2019 SUBJECTIVE: Cheikh Carlos is doing well. She is ambulating on room air. She wants to go home desperately. OBJECTIVE: VITAL SIGNS: She is in no distress. LUNGS: Still remarkable for wheezes diffusely. HEART: Regular rhythm. ABDOMEN: Soft. IMPRESSION: 1. Pneumonia. 2. Asthmatic bronchitis. I doubt her pulmonary infiltrates are allergic bronchopulmonary aspergillosis. She will go home on Omnicef to complete a 14-day course. She will go home on 40 of prednisone for 5 days and 20 mg a day until she sees me. I have written a prescription for nebulizer with [facility]. Job ID: [id number]
--- NOTE | 2019-10-03 15:04 | DIS ---
DATE OF ADMISSION: 09/24/2019 DATE OF DISCHARGE: 09/30/2019 DISCHARGE DIAGNOSES: Acute hypoxic respiratory failure secondary to pneumonia, hypokalemia, hypertension, leukocytosis, anemia, transaminitis. CONSULTATIONS: Dr. Otis Montague with Pulmonology. PROCEDURES: None. BRIEF HISTORY OF PRESENT ILLNESS: This is a 64-year-old female with a past medical history of hypertension, hyperlipidemia, who had presented to the hospital with persistent productive cough and shortness of breath. In the emergency room, she did have an O2 saturation of 88% on room air. When she was brought to the hospital , she was placed on BiPAP empirically and was saturating 100%. The patient had a chest x-ray in the emergency room, which showed multifocal pneumonia. She did give a history of a grandson testing positive for the flu however patient tested negative. Her white blood cell count on admission was 19. She was given ceftriaxone and azithromycin and admitted to the hospital. HOSPITAL COURSE: Acute hypoxic respiratory failure secondary to multifocal pneumonia: The patient was treated with IV ceftriaxone for 2 days. She was switched to Omnicef on the . The patient has been weaned off oxygen and is on room air. She was also treated with scheduled DuoNeb. She was seen by Dr. Montague in the hospital and felt to be cleared for discharge today. The patient will need to take Omnicef for another one week. She will continue her DuoNeb q.4 hours and she was also told to take albuterol p.r.n. She will follow up with Dr. Montague on of this week and will follow up with her PCP in a week. Hypokalemia: The patient had a potassium of 3.4. This was replaced. The patient is on lisinopril at home. She should have a BMP repeated in a week to recheck her potassium. Anemia: The patient had a hemoglobin of 11.7. She denied any blood in her stools. This can be further monitored as an outpatient. Transaminitis: The patient had an AST of 50, which improved to 41 with holding her atorvastatin. Her atorvastatin was resumed on the . The patient should have repeat LFTs checked as an outpatient. She denies any complaints of abdominal pain, nausea, vomiting. DISCHARGE PHYSICAL EXAMINATION: VITAL SIGNS: Temperature is 97.6, heart rate 69, respiratory rate 20, O2 saturations 100% on room air, blood pressure 143/82. GENERAL: The patient is alert, awake, oriented x3. CVS: Regular rate and rhythm with no murmurs, rubs, or gallops. LUNGS: The patient has bilateral rhonchi. ABDOMEN: Positive bowel sounds, soft, nontender, nondistended. EXTREMITIES: No edema. PERTINENT LABORATORY DATA: CBC on 09/29: White blood cell count is 8.7. This is improved from 19 on 09/24, hemoglobin 11.7, hematocrit 35.2, platelets 391. BMP on 09/30: Potassium is 3.4. LFTs 09/25: AST 41, ALT 49, alkaline phosphatase 85. LDH 318. Troponin I 0.011. PERTINENT IMAGING: Chest x-ray on 09/24: Multifocal pneumonia. Patchy airspace opacities involving the right upper lobe and both lower lobes. DISCHARGE CONDITION: Stable. ACTIVITY: As tolerated. DIET: Heart healthy diet. DISCHARGE INSTRUCTIONS: The patient to follow up with her PCP in a week and Dr. Montague on . She should have her LFTs repeated and her potassium repeated. Also consider working up her anemia. DISCHARGE MEDICATIONS: 1. Omnicef 300 mg p.o. b.i.d. #14 tablets. 2. Mucinex 1200 mg p.o. q.12 hours p.r.n. for one week. 3. DuoNeb q.4 hours. 4. Albuterol nebulizer q.2 hours p.r.n. 5. Prednisone 40 mg daily for 4 days. 6. Lisinopril 5 mg p.o. daily. 7. Atorvastatin 40 mg p.o. daily. 8. Amlodipine 10 mg p.o. daily. Job ID: [id number] [facility]
== END 2019-09-30 13:28 | disposition home or self-care (01) | DRG 871 ==
LOC: ERS 17:50 → IMCU/EMU 22:43 → SURG B 09-27 15:11
PROVIDERS: ADMIT Family Medicine; ATTEND Family Medicine
PROC: 5A09357 Assistance with Respiratory Ventilation, Less than 24 Consecutive Hours, Continuous Positive Airway Pressure (ICD-10-PCS; principal; 2019-09-24)
DX: A41.9 Sepsis, unspecified organism (principal); J96.01 Acute respiratory failure with hypoxia; J18.1 Lobar pneumonia, unspecified organism; E78.5 Hyperlipidemia, unspecified; E87.6 Hypokalemia; J45.909 Unspecified asthma, uncomplicated; M19.90 Unspecified osteoarthritis, unspecified site; R79.89 Other specified abnormal findings of blood chemistry; Z20.828 Contact with and (suspected) exposure to other viral communicable diseases; Z79.899 Other long term (current) drug therapy; Z90.49 Acquired absence of other specified parts of digestive tract; Z88.8 Allergy status to other drugs, medicaments and biological substances
CPT/HCPCS: 36415; 71045; 80048; 80053; 80076; 82550; 83605; 83615; 83880; 84484; 85025; 85610; 85730; 87040; 87804; 94640; 94660; 94760; 96365; 96367; J0456; J0696; J1650; J2920; J3480; J3490; J7050; J7512; J7620

== ENCOUNTER 2019-10-05 09:47 | Outpatient (CLI) | payer BC ==
--- NOTE | 2019-10-05 11:38 | RAD ---
CHEST 2 VIEWS: HISTORY: Dyspnea, shortness of breath. COMPARISON: 09/24/2019. FINDINGS: Borderline hyperinflation. Heart size is normal. The lungs show no confluent pneumonia, overt edema , or pleural effusion. The patchy alveolar and interstitial opacities seen on the prior study have r esolved. IMPRESSION: Resolution of the multiple bilateral alveolar nodular opacity changes. Minimal vertical linear zuleta es in the lower lobes have more of a chronic or subsegmental atelectasis appearance. POS: OFF
== END 2019-10-05 09:48 | disposition home or self-care (01) ==
LOC: RAD 09:47
PROVIDERS: ATTEND Internal Medicine Critical Care Medicine
DX: R06.00 Dyspnea, unspecified (principal); R91.8 Other nonspecific abnormal finding of lung field
CPT/HCPCS: 71046

== ENCOUNTER 2021-07-24 08:12 | Outpatient (CLI) | payer MEDICARE, BC | END 2021-07-24 08:13 | disposition home or self-care (01) | LOC: BICMRI 08:12 | PROVIDERS: ATTEND Psychiatry & Neurology Neurology | DX: G43.109 Migraine with aura, not intractable, without status migrainosus (principal) | CPT/HCPCS: 70544; 70549; 70551; 82565 ==

== ENCOUNTER 2021-12-16 08:43 | Outpatient (CLI) | payer MEDICARE, BC | END 2021-12-16 08:44 | disposition home or self-care (01) | LOC: BICMAMMO 08:43 | PROVIDERS: ATTEND Internal Medicine Hospice and Palliative Medicine | DX: Z12.31 Encounter for screening mammogram for malignant neoplasm of breast (principal) | CPT/HCPCS: 77063; 77067 ==

== ENCOUNTER 2021-12-25 09:22 | Outpatient (CLI) | payer MEDICARE, BC | END 2021-12-25 09:23 | disposition home or self-care (01) | LOC: BICRAD 09:22 | PROVIDERS: ATTEND Internal Medicine Rheumatology | DX: M25.561 Pain in right knee (principal); M25.562 Pain in left knee; M17.0 Bilateral primary osteoarthritis of knee; M25.462 Effusion, left knee; M25.461 Effusion, right knee ==

== ENCOUNTER 2022-06-03 09:20 | Outpatient (CLI) | payer MEDICARE, BC | END 2022-06-03 09:21 | disposition home or self-care (01) | LOC: SCSMRI 09:20 | PROVIDERS: ATTEND Physician Assistant Medical | DX: K86.89 Other specified diseases of pancreas (principal); N28.1 Cyst of kidney, acquired; D73.4 Cyst of spleen; D18.03 Hemangioma of intra-abdominal structures | CPT/HCPCS: 74183 ==

== ENCOUNTER 2022-06-17 08:37 | Outpatient (CLI) | payer MEDICARE, BC | END 2022-06-17 08:38 | disposition home or self-care (01) | LOC: BICMAMMO 08:37 | PROVIDERS: ATTEND Internal Medicine Rheumatology | DX: Z13.820 Encounter for screening for osteoporosis (principal); S42.91XG Fracture of right shoulder girdle, part unspecified, subsequent encounter for fracture with delayed healing; M81.0 Age-related osteoporosis without current pathological fracture; M85.851 Other specified disorders of bone density and structure, right thigh; M85.852 Other specified disorders of bone density and structure, left thigh; Z78.0 Asymptomatic menopausal state | CPT/HCPCS: 77080 ==

== ENCOUNTER 2023-06-29 09:02 | Outpatient (CLI) | payer MEDICARE, BC | END 2023-06-29 09:03 | disposition home or self-care (01) | LOC: BICULT 09:02 | PROVIDERS: ATTEND Internal Medicine Rheumatology | DX: R74.8 Abnormal levels of other serum enzymes (principal) | CPT/HCPCS: 76705 ==

== ENCOUNTER 2025-08-24 06:17 | Day surgery (SDC) | payer MEDICARE ==
[2025-08-23 10:18] VITALS: BMI 24.3
[2025-08-24 07:56] LABS: #Basophils 0.03 10x3/uL (0.0-0.2); #Eosinophils 0.28 10x3/uL (0.0-0.7); #Monocytes 0.44 10x3/uL (0.11-0.59); #Neutrophils 2.92 10x3/uL (1.40-6.50); %Basophils 0.6 % (0.0-1.0); %Eosinophils 5.4 % (0.0-10.0); %Lymphocytes 28.7 % (21.0-51.0); %Monocytes 8.5 % (0.0-10.0); %Neutrophils 56.6 % (42.0-75.0); Hematocrit 37.6 % (36.0-47.0); Hemoglobin 12.5 g/dL (12.0-16.0); Mean Corpuscular Hemoglobin 29.6 pg (27.0-31.0); Mean Corpuscular Volume 89.1 fL (78.0-98.0); Platelet Count 135 10x3/uL (130-400); Red Blood Cell (RBC) Count 4.22 mill/uL (4.20-5.40); White Blood Cell (WBC) Count 5.16 10x3/uL (4.8-10.8)
[2025-08-24 08:08] LABS: Anion Gap 8 mmol/L (10-20); BUN (Urea Nitrogen) 16 mg/dL (9.8-20.1); Calc. Creatinine Clearance 98 mL/min (70-130); Calcium 9.0 mg/dL (7.8-10.44); Carbon Dioxide 25 mmol/L (23-31); Chloride 111 mmol/L (98-107); Glucose 97 mg/dL (80-115); Potassium 3.8 mmol/L (3.5-5.1); Sodium 140 mmol/L (136-145)
[2025-08-24] MEDS ORDERED: Lidocaine 1% (PF) 30 ML VIAL ONE (08:15)
[2025-08-24] MEDS ORDERED: Adenosine 6 mg (2 mL) VIAL ONE (08:15)
[2025-08-24] MEDS ORDERED: Heparin 10,000 UNITS/ 10 ML VIAL ONE ×2 (08:15→09:35)
[2025-08-24] MEDS ORDERED: Nitroglycerin 50 MG/250 ML BOT 250 ML ONE (08:16)
[2025-08-24] MEDS ORDERED: Iopamidol 370 76% 100 ML VIAL ONE (09:08)
== END 2025-08-24 17:02 | disposition home or self-care (01) ==
LOC: SDC 06:17
PROVIDERS: ATTEND Internal Medicine Cardiovascular Disease
DX: I25.10 Atherosclerotic heart disease of native coronary artery without angina pectoris (principal); I65.22 Occlusion and stenosis of left carotid artery; I49.3 Ventricular premature depolarization; I10 Essential (primary) hypertension; M06.9 Rheumatoid arthritis, unspecified; Z90.710 Acquired absence of both cervix and uterus; Z90.49 Acquired absence of other specified parts of digestive tract; Z90.89 Acquired absence of other organs; Z88.1 Allergy status to other antibiotic agents; Z88.8 Allergy status to other drugs, medicaments and biological substances
CPT/HCPCS: 80048; 85025; 85347 ×2; 92978; 93454; C1753; C1769; C1887 ×2; C1894 ×3; J1644; J2003; J3010; 99152; 99153; J0153; Q9967

== ENCOUNTER 2025-08-27 14:35 | Outpatient (CLI) | payer MEDICARE | END 2025-08-27 14:36 | disposition home or self-care (01) | LOC: LABBT 14:35 | PROVIDERS: ATTEND Student in an Organized Health Care Education/Training Program | DX: Z01.818 Encounter for other preprocedural examination (principal); I25.10 Atherosclerotic heart disease of native coronary artery without angina pectoris | CPT/HCPCS: 71046; 80053; 85025; 85610; 85730; 86850; 86900; 86901 ==

== ENCOUNTER 2025-08-27 16:00 | Inpatient (IN) | payer MEDICARE ==
[2025-08-27 15:52] LABS: #Basophils 0.03 10x3/uL (0.0-0.2); #Eosinophils 0.31 10x3/uL (0.0-0.7); #Monocytes 0.46 10x3/uL (0.11-0.59); #Neutrophils 3.82 10x3/uL (1.40-6.50); %Basophils 0.5 % (0.0-1.0); %Eosinophils 4.9 % (0.0-10.0); %Lymphocytes 26.3 % (21.0-51.0); %Monocytes 7.3 % (0.0-10.0); %Neutrophils 60.8 % (42.0-75.0); Hematocrit 39.5 % (36.0-47.0); Hemoglobin 12.7 g/dL (12.0-16.0); Mean Corpuscular Hemoglobin 29.3 pg (27.0-31.0); Mean Corpuscular Volume 91.2 fL (78.0-98.0); Platelet Count 152 10x3/uL (130-400); Red Blood Cell (RBC) Count 4.33 mill/uL (4.20-5.40); White Blood Cell (WBC) Count 6.28 10x3/uL (4.8-10.8)
[2025-08-27 16:09] LABS: ALT (SGPT) 14 U/L (Less than 34); AST (SGOT) 24 U/L (11-34); Albumin 4.4 g/dL (3.1-4.5); Alkaline Phosphatase 70 U/L (40-110); Anion Gap 13 mmol/L (10-20); BUN (Urea Nitrogen) 20 mg/dL (9.8-20.1); Bilirubin, Total 0.5 mg/dL (0.3-1.2); Calc. Creatinine Clearance 0 mL/min (70-130); Calcium 9.4 mg/dL (7.8-10.44); Carbon Dioxide 27 mmol/L (23-31); Chloride 107 mmol/L (98-107); Globulin 2.8 g/dL (2.4-3.5); Glucose 95 mg/dL (80-115); INR-International Normal Ratio 1.0; Potassium 4.1 mmol/L (3.5-5.1); Prothrombin Time 13.6 sec (12.0-14.7); Sodium 143 mmol/L (136-145)
[2025-08-27 16:10] LABS: PTT 30.8 sec (22.9-36.1)
[2025-08-29] MEDS ORDERED: PHENYLEPHRINE-NS 100 MCG/ML 10 ML SYRINGE ONE ×3 (06:35→10:04)
[2025-08-29] MEDS ORDERED: CEFAZOLIN 1 GM VIAL ONE (07:21)
[2025-08-29] MEDS ORDERED: Heparin 10,000 UNITS/1 ML VIAL 30,000 UNITS in Sodium Chloride 0.9% 1,000 ML FS SCH (07:30)
[2025-08-29] MEDS ORDERED: fentaNYL PF 100 MCG/2 ML SYRINGE ONE (07:37)
[2025-08-29] MEDS ORDERED: Ondansetron PF 4 MG/2 ML Vial ONE (07:38)
[2025-08-29] MEDS ORDERED: PROPOFOL 20 ML ONE ×2 (07:38→12:05)
[2025-08-29] MEDS ORDERED: Rocuronium Bromide 10 MG/ML (10ML VIAL) ONE ×3 (07:38→09:21)
[2025-08-29] MEDS ORDERED: Lidocaine 1% PF 5 ML VIAL ONE (07:38)
[2025-08-29] MEDS ORDERED: PROPOFOL 200 MG/20 ML VIAL ONE (07:44)
[2025-08-29] MEDS ORDERED: Thrombin 5000 UNITS/5 ML VIAL ONE (07:44)
[2025-08-29] MEDS ORDERED: Cardioplegic Soln 1,000 ML BAG ONE (07:44)
[2025-08-29] MEDS ORDERED: Calcium Chloride 1 GM/10 ML Abboject SYRINGE ONE (07:44)
[2025-08-29] MEDS ORDERED: Heparin 5,000 UNITS/ML VIAL ONE (07:44)
[2025-08-29] MEDS ORDERED: Heparin 30,000 units/30 ml VIAL ONE (07:44)
[2025-08-29] MEDS ORDERED: HYDROmorphone 2 MG/ML VIAL ONE (09:20)
[2025-08-29] MEDS ORDERED: SUGAMMADEX SODIUM 200 MG/2 ML VIAL ONE (12:31)
[2025-08-29] MEDS ORDERED: Bisacodyl 10 MG SUPP PR PRN (12:46)
[2025-08-29] MEDS ORDERED: Nitroglycerin 50 MG/250 ML BOT 250 ML IVPB PRN (12:46)
[2025-08-29] MEDS ORDERED: niCARdipine 25 MG in Sodium Chloride 0.9% 250 ML 250 ML IVPB PRN (12:46)
[2025-08-29] MEDS ORDERED: Mag-Al 1200 mg/1200 mg/30 ML UDCUP PO PRN (12:46)
[2025-08-29] MEDS ORDERED: Albumin 5% 12.5 GM (250 mL) BOT IVPB PRN (12:46)
[2025-08-29] MEDS ORDERED: Guaifenesin DM 100-10/5 ML UDCUP PO PRN (12:46)
[2025-08-29] MEDS ORDERED: Phenylephrine 40 MG/NS 250 ML 250 ML IVPB PRN (12:46)
[2025-08-29] MEDS ORDERED: Electrolyte Replacement Protocol 1 EACH FS SCH (13:00)
[2025-08-29] MEDS ORDERED: Potassium Chloride 20 MEQ in Premix 1 BAG IVPB PRN (13:15)
[2025-08-29] MEDS ORDERED: Glucagon 1 MG/ML KIT SC PRN (13:15)
[2025-08-29] MEDS ORDERED: PHOS-NAK 1 PKT PACK PO PRN (13:15)
[2025-08-29] MEDS ORDERED: INSULIN REGULAR IN 0.9 % NACL 100 UNITS in Premix 1 BAG IVPB SCH (13:15)
[2025-08-29] MEDS ORDERED: Dextrose 50% Abboject 50 ML SYRINGE SLOW IVP PRN (13:15)
[2025-08-29] MEDS: Albumin 5% 12.5 GM (250 mL) BOT IVPB PRN (13:20)
[2025-08-29 13:44] LABS: Actual Bicarbonate (HCO3a) 22.5 mEq/L (22-28); Base Excess (BEa) -2.7 mEq/L (-2.0 to +3.0); CO2 Tension 40.6 mmHg (35.0-45.0); Calcium, Ionized (arterial) 1.05 mmol/L (1.12-1.30); Hematocrit-ABG 24 % (36.0-47.0); Hemoglobin (Hb) 8.2 g/dL (12.0-16.0); O2 Tension (PaO2), arterial 179.7 mmHg (> 70.0); Potassium - ABG Lab 3.63 mmol/L (3.70-5.30); pH, Arterial 7.361 (7.35-7.45)
[2025-08-29 13:49] LABS: #Basophils 0.08 10x3/uL (0.0-0.2); #Eosinophils 0.20 10x3/uL (0.0-0.7); #Monocytes 1.06 10x3/uL (0.11-0.59); #Neutrophils 19.44 10x3/uL (1.40-6.50); %Basophils 0.3 % (0.0-1.0); %Eosinophils 0.8 % (0.0-10.0); %Lymphocytes 12.0 % (21.0-51.0); %Monocytes 4.4 % (0.0-10.0); %Neutrophils 80.5 % (42.0-75.0); Hematocrit 26.6 % (36.0-47.0); Hemoglobin 8.8 g/dL (12.0-16.0); Mean Corpuscular Hemoglobin 30.0 pg (27.0-31.0); Mean Corpuscular Volume 90.8 fL (78.0-98.0); Platelet Count 129 10x3/uL (130-400); Red Blood Cell (RBC) Count 2.93 mill/uL (4.20-5.40); White Blood Cell (WBC) Count 24.17 10x3/uL (4.8-10.8)
[2025-08-29 13:49] LABS: INR-International Normal Ratio 1.5; Prothrombin Time 18.1 sec (12.0-14.7)
[2025-08-29 13:50] LABS: PTT 31.7 sec (22.9-36.1)
[2025-08-29] MEDS: Norepinephrine 8 MG/0.9% NS 250 ML IVPB PRN (13:50)
[2025-08-29] MEDS: Magnesium 2 GM/50 ML(in water) 2 GM in Premix 1 BAG IVPB SCH (13:53)
[2025-08-29] MEDS: Post-Op Insulin Drip Protocol IVPB ONE (13:56)
[2025-08-29 14:03] LABS: Anion Gap 16 mmol/L (10-20); BUN (Urea Nitrogen) 18 mg/dL (9.8-20.1); Calc. Creatinine Clearance 100 mL/min (70-130); Calcium 7.5 mg/dL (7.8-10.44); Carbon Dioxide 21 mmol/L (23-31); Chloride 113 mmol/L (98-107); Glucose 194 mg/dL (80-115); Potassium 3.9 mmol/L (3.5-5.1); Sodium 146 mmol/L (136-145)
[2025-08-29] MEDS: Potassium Chloride 20 MEQ (100 mL) BAG IVPB PRN (14:37)
[2025-08-29 15:55] LABS: Actual Bicarbonate (HCO3a) 19.0 mEq/L (22-28); Base Excess (BEa) -5.8 mEq/L (-2.0 to +3.0); CO2 Tension 34.2 mmHg (35.0-45.0); Calcium, Ionized (arterial) 1.08 mmol/L (1.12-1.30); Hematocrit-ABG 24 % (36.0-47.0); Hemoglobin (Hb) 8.2 g/dL (12.0-16.0); O2 Tension (PaO2), arterial 171.4 mmHg (> 70.0); Potassium - ABG Lab 3.65 mmol/L (3.70-5.30); pH, Arterial 7.362 (7.35-7.45)
[2025-08-29] MEDS: Ondansetron PF 4 MG/2 ML Vial IVP PRN (16:19)
[2025-08-29] MEDS: Sodium Bicarb 50 MEQ/50 ML Abboject 8.4% SYRINGE IVP SCH (16:29)
[2025-08-29] MEDS: Sodium Bicarb 50 MEQ/50 ML Abboject 8.4% SYRINGE ONE (16:29)
[2025-08-29 17:39] LABS: INR-International Normal Ratio 1.6; Prothrombin Time 19.4 sec (12.0-14.7)
[2025-08-29 17:40] LABS: PTT 34.2 sec (22.9-36.1)
[2025-08-29 18:06] LABS: Hematocrit 18.8 % (36.0-47.0); Hemoglobin 6.0 g/dL (12.0-16.0); Mean Corpuscular Hemoglobin 29.6 pg (27.0-31.0); Mean Corpuscular Volume 92.6 fL (78.0-98.0); Platelet Count 109 10x3/uL (130-400); Red Blood Cell (RBC) Count 2.03 mill/uL (4.20-5.40); White Blood Cell (WBC) Count 14.99 10x3/uL (4.8-10.8)
[2025-08-29] MEDS: Famotidine/PF 20 mg/2ml Vial SLOW IVP SCH (20:24)
[2025-08-29] MEDS: Acetaminophen 325 MG TAB PO PRN (23:35)
[2025-08-30 00:26] LABS: Potassium 3.9 mmol/L (3.5-5.1)
[2025-08-30 03:41] LABS: #Basophils 0.03 10x3/uL (0.0-0.2); #Eosinophils Less than 0.03 10x3/uL (0.0-0.7); #Monocytes 0.94 10x3/uL (0.11-0.59); #Neutrophils 11.27 10x3/uL (1.40-6.50); %Basophils 0.2 % (0.0-1.0); %Eosinophils 0.0 % (0.0-10.0); %Lymphocytes 8.3 % (21.0-51.0); %Monocytes 7.0 % (0.0-10.0); %Neutrophils 84.1 % (42.0-75.0); Hematocrit 21.7 % (36.0-47.0); Hemoglobin 7.2 g/dL (12.0-16.0); Mean Corpuscular Hemoglobin 29.8 pg (27.0-31.0); Mean Corpuscular Volume 89.7 fL (78.0-98.0); Platelet Count 143 10x3/uL (130-400); Red Blood Cell (RBC) Count 2.42 mill/uL (4.20-5.40); White Blood Cell (WBC) Count 13.41 10x3/uL (4.8-10.8)
[2025-08-30 04:01] LABS: ALT (SGPT) 14 U/L (Less than 34); AST (SGOT) 36 U/L (11-34); Albumin 3.5 g/dL (3.1-4.5); Alkaline Phosphatase 31 U/L (40-110); Anion Gap 16 mmol/L (10-20); BUN (Urea Nitrogen) 18 mg/dL (9.8-20.1); Bilirubin, Total 0.7 mg/dL (0.3-1.2); Calc. Creatinine Clearance 97 mL/min (70-130); Calcium 7.1 mg/dL (7.8-10.44); Carbon Dioxide 21 mmol/L (23-31); Chloride 111 mmol/L (98-107); Globulin 1.1 g/dL (2.4-3.5); Glucose 175 mg/dL (80-115); Magnesium 2.1 mg/dL (1.6-2.6); Potassium 4.7 mmol/L (3.5-5.1); Sodium 143 mmol/L (136-145)
[2025-08-30] MEDS ORDERED: Heparin 10,000 UNITS/ 10 ML VIAL ONE (04:51)
[2025-08-30] MEDS ORDERED: PROPOFOL 20 ML ONE (04:56)
[2025-08-30] MEDS ORDERED: Ondansetron PF 4 MG/2 ML Vial ONE (05:44)
[2025-08-30] MEDS ORDERED: Rocuronium Bromide 10 MG/ML (10ML VIAL) ONE (05:44)
[2025-08-30] MEDS ORDERED: Albumin 5% 12.5 GM (250 mL) BOT IVPB PRN (06:35)
[2025-08-30] MEDS ORDERED: Magnesium 2 GM/50 ML(in water) 2 GM in Premix 1 BAG IVPB SCH ×2 (06:45→09:00)
[2025-08-30 07:15] LABS: Actual Bicarbonate (HCO3a) 20.4 mEq/L (22-28); Base Excess (BEa) -4.3 mEq/L (-2.0 to +3.0); CO2 Tension 35.8 mmHg (35.0-45.0); Calcium, Ionized (arterial) 0.96 mmol/L (1.12-1.30); Hematocrit-ABG 30 % (36.0-47.0); Hemoglobin (Hb) 10.2 g/dL (12.0-16.0); O2 Tension (PaO2), arterial 144.0 mmHg (> 70.0); Potassium - ABG Lab 4.05 mmol/L (3.70-5.30); pH, Arterial 7.374 (7.35-7.45)
[2025-08-30 07:17] LABS: Puncture Site Arterial Line
[2025-08-30 07:44] LABS: Anion Gap 14 mmol/L (10-20); BUN (Urea Nitrogen) 18 mg/dL (9.8-20.1); Calc. Creatinine Clearance 88 mL/min (70-130); Calcium 6.8 mg/dL (7.8-10.44); Carbon Dioxide 23 mmol/L (23-31); Chloride 111 mmol/L (98-107); Glucose 149 mg/dL (80-115); Potassium 4.3 mmol/L (3.5-5.1); Sodium 144 mmol/L (136-145)
[2025-08-30 07:51] LABS: INR-International Normal Ratio 1.3; Prothrombin Time 16.3 sec (12.0-14.7)
[2025-08-30 07:52] LABS: PTT 32.6 sec (22.9-36.1)
[2025-08-30] MEDS: Albumin 5% 12.5 GM (250 mL) BOT IVPB PRN (07:58)
[2025-08-30] MEDS: Magnesium 2 GM/50 ML(in water) 2 GM in Premix 1 BAG IVPB SCH (08:00)
[2025-08-30 08:08] LABS: #Basophils Less than 0.03 10x3/uL (0.0-0.2); #Eosinophils Less than 0.03 10x3/uL (0.0-0.7); #Monocytes 1.01 10x3/uL (0.11-0.59); #Neutrophils 11.04 10x3/uL (1.40-6.50); %Basophils 0.1 % (0.0-1.0); %Eosinophils 0.0 % (0.0-10.0); %Lymphocytes 8.1 % (21.0-51.0); %Monocytes 7.7 % (0.0-10.0); %Neutrophils 83.9 % (42.0-75.0); Hematocrit 27.9 % (36.0-47.0); Hemoglobin 9.2 g/dL (12.0-16.0); Mean Corpuscular Hemoglobin 30.0 pg (27.0-31.0); Mean Corpuscular Volume 90.9 fL (78.0-98.0); Platelet Count 106 10x3/uL (130-400); Red Blood Cell (RBC) Count 3.07 mill/uL (4.20-5.40); White Blood Cell (WBC) Count 13.15 10x3/uL (4.8-10.8)
[2025-08-30] MEDS: CALCIUM GLUC 1 GM/NS 50 ML 1 GM in Premix 1 BAG IVPB SCH ×2 (08:35→14:34)
[2025-08-30] MEDS: Calcium Chloride 1 GM/10 ML Abboject SYRINGE ONE (08:39)
[2025-08-30 08:47] LABS: Macrocytosis SLIGHT = 6-15 cells HPF (0-5); Platelet Adequacy Comment Platelets Decreased; Polychromasia SLIGHT = 2-3 cells HPF (0-2)
[2025-08-30] MEDS: Aspirin 325 MG TAB PO SCH (08:50)
[2025-08-30] MEDS: Senokot 8.6 MG TAB PO SCH (08:50)
[2025-08-30] MEDS: Heparin 5,000 UNITS/ML VIAL SC SCH (09:29)
[2025-08-30 10:55] LABS: Magnesium 2.3 mg/dL (1.6-2.6)
[2025-08-30 11:30] LABS: Actual Bicarbonate (HCO3a) 22.7 mEq/L (22-28); Base Excess (BEa) -1.3 mEq/L (-2.0 to +3.0); CO2 Tension 35.3 mmHg (35.0-45.0); Calcium, Ionized (arterial) 1.01 mmol/L (1.12-1.30); Hematocrit-ABG 28 % (36.0-47.0); Hemoglobin (Hb) 9.5 g/dL (12.0-16.0); O2 Tension (PaO2), arterial 114.4 mmHg (> 70.0); Potassium - ABG Lab 4.05 mmol/L (3.70-5.30); pH, Arterial 7.426 (7.35-7.45)
[2025-08-30 11:31] LABS: Puncture Site Arterial Line
[2025-08-30 12:57] LABS: Hematocrit 23.6 % (36.0-47.0); Hemoglobin 8.1 g/dL (12.0-16.0)
[2025-08-30] MEDS ORDERED: Insulin Glargine 30 UNITS/0.3 ML VIAL SC PRN (13:03)
[2025-08-30 13:15] LABS: ALT (SGPT) 11 U/L (Less than 34); AST (SGOT) 37 U/L (11-34); Albumin 3.3 g/dL (3.1-4.5); Alkaline Phosphatase 29 U/L (40-110); Anion Gap 10 mmol/L (10-20); BUN (Urea Nitrogen) 18 mg/dL (9.8-20.1); Bilirubin, Total 0.4 mg/dL (0.3-1.2); Calc. Creatinine Clearance 100 mL/min (70-130); Calcium 7.2 mg/dL (7.8-10.44); Carbon Dioxide 25 mmol/L (23-31); Chloride 111 mmol/L (98-107); Globulin 1.0 g/dL (2.4-3.5); Glucose 135 mg/dL (80-115); Potassium 4.3 mmol/L (3.5-5.1); Sodium 142 mmol/L (136-145)
[2025-08-30] MEDS: Mupirocin 1 GM TUBE NASAL DECOLONIZATION TP SCH (14:19)
[2025-08-30] MEDS: Mupirocin 1 GM TUBE NASAL DECOLOIZATION TP SCH (19:22)
[2025-08-30] MEDS: Transdermal Patch Removal LIDOCAINE TOP SCH (19:41)
[2025-08-31 04:34] LABS: #Basophils Less than 0.03 10x3/uL (0.0-0.2); #Eosinophils Less than 0.03 10x3/uL (0.0-0.7); #Monocytes 0.97 10x3/uL (0.11-0.59); #Neutrophils 8.37 10x3/uL (1.40-6.50); %Basophils 0.1 % (0.0-1.0); %Eosinophils 0.1 % (0.0-10.0); %Lymphocytes 13.7 % (21.0-51.0); %Monocytes 8.9 % (0.0-10.0); %Neutrophils 76.8 % (42.0-75.0); Hematocrit 23.5 % (36.0-47.0); Hemoglobin 7.8 g/dL (12.0-16.0); Mean Corpuscular Hemoglobin 30.4 pg (27.0-31.0); Mean Corpuscular Volume 91.4 fL (78.0-98.0); Platelet Count 76 10x3/uL (130-400); Red Blood Cell (RBC) Count 2.57 mill/uL (4.20-5.40); White Blood Cell (WBC) Count 10.89 10x3/uL (4.8-10.8)
[2025-08-31 04:49] LABS: ALT (SGPT) 10 U/L (Less than 34); AST (SGOT) 42 U/L (11-34); Albumin 3.0 g/dL (3.1-4.5); Anion Gap 11 mmol/L (10-20); BUN (Urea Nitrogen) 21 mg/dL (9.8-20.1); Bilirubin, Total 0.4 mg/dL (0.3-1.2); Calc. Creatinine Clearance 102 mL/min (70-130); Calcium 7.6 mg/dL (7.8-10.44); Carbon Dioxide 25 mmol/L (23-31); Chloride 106 mmol/L (98-107); Globulin 1.5 g/dL (2.4-3.5); Glucose 124 mg/dL (80-115); Magnesium 2.3 mg/dL (1.6-2.6); Potassium 4.1 mmol/L (3.5-5.1); Sodium 138 mmol/L (136-145)
[2025-08-31 05:05] LABS: Alkaline Phosphatase 40 U/L (40-110)
[2025-08-31] MEDS: CALCIUM GLUC 1 GM/NS 50 ML 1 GM in Premix 1 BAG IVPB SCH (06:42)
[2025-08-31] MEDS: Potassium Phosphate 22 MMOL in Sodium Chloride 0.9% 250 ML 250 ML IVPB SCH (07:25)
[2025-08-31] MEDS: Aspirin 81 mg Enteric Coated Tablet PO SCH (07:29)
[2025-08-31] MEDS: Furosemide 40 MG (4 mL) VIAL SLOW IVP SCH (07:45)
[2025-08-31 15:22] VITALS: BMI 26.1
[2025-09-01] MEDS: hydrALAZINE 20 MG/ML VIAL SLOW IVP PRN (03:15)
[2025-09-01 05:29] LABS: #Basophils Less than 0.03 10x3/uL (0.0-0.2); #Eosinophils 0.04 10x3/uL (0.0-0.7); #Monocytes 0.84 10x3/uL (0.11-0.59); #Neutrophils 8.89 10x3/uL (1.40-6.50); %Basophils 0.2 % (0.0-1.0); %Eosinophils 0.3 % (0.0-10.0); %Lymphocytes 13.9 % (21.0-51.0); %Monocytes 7.3 % (0.0-10.0); %Neutrophils 77.5 % (42.0-75.0); Hematocrit 26.8 % (36.0-47.0); Hemoglobin 8.9 g/dL (12.0-16.0); Mean Corpuscular Hemoglobin 29.9 pg (27.0-31.0); Mean Corpuscular Volume 89.9 fL (78.0-98.0); Platelet Count 86 10x3/uL (130-400); Red Blood Cell (RBC) Count 2.98 mill/uL (4.20-5.40); White Blood Cell (WBC) Count 11.47 10x3/uL (4.8-10.8)
[2025-09-01 05:41] LABS: ALT (SGPT) 12 U/L (Less than 34); AST (SGOT) 41 U/L (11-34); Albumin 2.7 g/dL (3.1-4.5); Alkaline Phosphatase 86 U/L (40-110); Anion Gap 11 mmol/L (10-20); BUN (Urea Nitrogen) 16 mg/dL (9.8-20.1); Bilirubin, Total 0.6 mg/dL (0.3-1.2); Calc. Creatinine Clearance 132 mL/min (70-130); Calcium 7.7 mg/dL (7.8-10.44); Carbon Dioxide 26 mmol/L (23-31); Chloride 104 mmol/L (98-107); Globulin 1.8 g/dL (2.4-3.5); Glucose 109 mg/dL (80-115); Magnesium 2.1 mg/dL (1.6-2.6); Potassium 3.9 mmol/L (3.5-5.1); Sodium 137 mmol/L (136-145)
[2025-09-01] MEDS: Potassium Phosphate 30 MMOL in Sodium Chloride 0.9% 250 ML 250 ML IVPB SCH (07:45)
[2025-09-01] MEDS: Pantoprazole 40 MG DR.TAB PO SCH (09:21)
[2025-09-02 08:22] LABS: Anion Gap 10 mmol/L (10-20); BUN (Urea Nitrogen) 11 mg/dL (9.8-20.1); Calc. Creatinine Clearance 126 mL/min (70-130); Calcium 8.1 mg/dL (7.8-10.44); Carbon Dioxide 23 mmol/L (23-31); Chloride 111 mmol/L (98-107); Glucose 102 mg/dL (80-115); Potassium 3.7 mmol/L (3.5-5.1); Sodium 140 mmol/L (136-145)
[2025-09-02] MEDS ORDERED: Artificial Tear Ophth Sol 15 ML BOT EA EYE PRN (08:36)
[2025-09-02] MEDS ORDERED: Mineral Oil ENEMA PR PRN (08:36)
[2025-09-02] MEDS ORDERED: diphenhydrAMINE 25 MG CAP PO PRN (08:36)
[2025-09-02] MEDS ORDERED: Milk Of Magnesia 30 ML UDCUP PO PRN (08:36)
[2025-09-02 08:53] LABS: #Basophils Less than 0.03 10x3/uL (0.0-0.2); #Eosinophils 0.16 10x3/uL (0.0-0.7); #Monocytes 0.82 10x3/uL (0.11-0.59); #Neutrophils 6.60 10x3/uL (1.40-6.50); %Basophils 0.2 % (0.0-1.0); %Eosinophils 1.8 % (0.0-10.0); %Lymphocytes 15.1 % (21.0-51.0); %Monocytes 9.1 % (0.0-10.0); %Neutrophils 72.9 % (42.0-75.0); Hematocrit 27.0 % (36.0-47.0); Hemoglobin 8.8 g/dL (12.0-16.0); Mean Corpuscular Hemoglobin 30.0 pg (27.0-31.0); Mean Corpuscular Volume 92.2 fL (78.0-98.0); Platelet Count 91 10x3/uL (130-400); Red Blood Cell (RBC) Count 2.93 mill/uL (4.20-5.40); White Blood Cell (WBC) Count 9.05 10x3/uL (4.8-10.8)
[2025-09-02 09:40] LABS: Burr Cells MODERATE= 6-15 cells HPF (0-1); Microcytosis SLIGHT = 6-15 cells HPF (0-5); Platelet Adequacy Comment Platelets Decreased; Polychromasia SLIGHT = 2-3 cells HPF (0-2)
[2025-09-03] MEDS: Amoxicillin/Potassium Clav 500 MG TAB PO SCH (08:23)
[2025-09-03] MEDS: Furosemide 20 MG TAB PO SCH (08:23)
[2025-09-03 08:57] LABS: Hematocrit 26.7 % (36.0-47.0); Hemoglobin 8.5 g/dL (12.0-16.0); Mean Corpuscular Hemoglobin 29.7 pg (27.0-31.0); Mean Corpuscular Volume 93.4 fL (78.0-98.0); Platelet Count 109 10x3/uL (130-400); Red Blood Cell (RBC) Count 2.86 mill/uL (4.20-5.40); White Blood Cell (WBC) Count 7.54 10x3/uL (4.8-10.8)
[2025-09-03 08:58] LABS: Anion Gap 12 mmol/L (10-20); BUN (Urea Nitrogen) 13 mg/dL (9.8-20.1); Calc. Creatinine Clearance 131 mL/min (70-130); Calcium 8.2 mg/dL (7.8-10.44); Carbon Dioxide 22 mmol/L (23-31); Chloride 109 mmol/L (98-107); Glucose 158 mg/dL (80-115); Magnesium 1.5 mg/dL (1.6-2.6); Potassium 3.3 mmol/L (3.5-5.1); Sodium 140 mmol/L (136-145)
[2025-09-04 10:05] LABS: #Basophils 0.03 10x3/uL (0.0-0.2); #Eosinophils 0.35 10x3/uL (0.0-0.7); #Monocytes 0.73 10x3/uL (0.11-0.59); #Neutrophils 5.44 10x3/uL (1.40-6.50); %Basophils 0.4 % (0.0-1.0); %Eosinophils 4.5 % (0.0-10.0); %Lymphocytes 14.2 % (21.0-51.0); %Monocytes 9.3 % (0.0-10.0); %Neutrophils 69.3 % (42.0-75.0); Hematocrit 26.7 % (36.0-47.0); Hemoglobin 8.8 g/dL (12.0-16.0); Mean Corpuscular Hemoglobin 30.1 pg (27.0-31.0); Mean Corpuscular Volume 91.4 fL (78.0-98.0); Platelet Count 133 10x3/uL (130-400); Red Blood Cell (RBC) Count 2.92 mill/uL (4.20-5.40); White Blood Cell (WBC) Count 7.84 10x3/uL (4.8-10.8)
[2025-09-04 10:22] LABS: Anion Gap 13 mmol/L (10-20); BUN (Urea Nitrogen) 11 mg/dL (9.8-20.1); Calc. Creatinine Clearance 134 mL/min (70-130); Calcium 8.6 mg/dL (7.8-10.44); Carbon Dioxide 26 mmol/L (23-31); Chloride 108 mmol/L (98-107); Glucose 105 mg/dL (80-115); Magnesium 1.4 mg/dL (1.6-2.6); Potassium 3.5 mmol/L (3.5-5.1); Sodium 143 mmol/L (136-145)
[2025-09-04] MEDS: Magnesium Sulfate In Water 4 GM in Premix 1 BAG IVPB PRN (10:36)
[2025-09-04 11:16] VITALS: BP 138/65; TEMP 98.1
== END 2025-09-04 13:10 | disposition home or self-care (01) | DRG 236 ==
LOC: SURG A 08-29 06:09 → CCU 08-29 12:02 → 2NO 09-02 11:42
PROVIDERS: ADMIT Student in an Organized Health Care Education/Training Program; ATTEND Student in an Organized Health Care Education/Training Program
PROC: 02100Z9 Bypass Coronary Artery, One Artery from Left Internal Mammary, Open Approach (ICD-10-PCS; principal; 2025-08-29)
PROC: 021109W Bypass Coronary Artery, Two Arteries from Aorta with Autologous Venous Tissue, Open Approach (ICD-10-PCS; 2025-08-29)
PROC: 06BQ4ZZ Excision of Left Saphenous Vein, Percutaneous Endoscopic Approach (ICD-10-PCS; 2025-08-29)
PROC: 02L70CK Occlusion of Left Atrial Appendage with Extraluminal Device, Open Approach (ICD-10-PCS; 2025-08-29)
PROC: 5A1935Z Respiratory Ventilation, Less than 24 Consecutive Hours (ICD-10-PCS; 2025-08-29)
PROC: 30233J1 Transfusion of Nonautologous Serum Albumin into Peripheral Vein, Percutaneous Approach (ICD-10-PCS; 2025-08-29)
PROC: 30233R1 Transfusion of Nonautologous Platelets into Peripheral Vein, Percutaneous Approach (ICD-10-PCS; 2025-08-29)
PROC: 30233N1 Transfusion of Nonautologous Red Blood Cells into Peripheral Vein, Percutaneous Approach (ICD-10-PCS; 2025-08-29)
PROC: 0WBC0ZZ Excision of Mediastinum, Open Approach (ICD-10-PCS; 2025-08-30)
PROC: 3E03329 Introduction of Other Anti-infective into Peripheral Vein, Percutaneous Approach (ICD-10-PCS; 2025-08-30)
DX: I25.10 Atherosclerotic heart disease of native coronary artery without angina pectoris (principal); I97.611 Postprocedural hemorrhage of a circulatory system organ or structure following cardiac bypass; D62 Acute posthemorrhagic anemia; I10 Essential (primary) hypertension; Z98.890 Other specified postprocedural states; E78.00 Pure hypercholesterolemia, unspecified; Z88.8 Allergy status to other drugs, medicaments and biological substances; M06.9 Rheumatoid arthritis, unspecified; Z79.899 Other long term (current) drug therapy; D69.6 Thrombocytopenia, unspecified
CPT/HCPCS: 36416; 36430; 71045; 80048; 80053; 82805; 83735; 84100; 85025; 85027; 85610; 85730; 86850; 86900; 86901; 93005; 93010; 93798; 94002; 94640; A4311; A4648; C1751; C1889; J0169; J0360; J0613; J0665; J0690; J1100; J1171; J1308; J1644; J1815; J1940; J2250; J2272; J2405; J2440; J2704; J2720; J3010; J3373; J3475; J3480; J7050; J7120; P9016; P9035; P9045; P9059; S0017